=== PATIENT | female | born 1965 | race American Indian/Alaskan Native ===

== ENCOUNTER 2016-05-17 09:52 | Emergency (ER) | payer MEDICAID ==
[2016-05-17 10:32] VITALS: BP 158/107
== END 2016-05-17 10:16 | disposition left against medical advice (07) ==
LOC: ED 09:52
DX: Z76.0 Encounter for issue of repeat prescription (principal); Z53.21 Procedure and treatment not carried out due to patient leaving prior to being seen by health care provider

== ENCOUNTER 2016-05-18 07:25 | Emergency (ER) | payer MEDICAID ==
[2016-05-18 08:05] VITALS: BP 143/95
== END 2016-05-18 12:05 | disposition left against medical advice (07) ==
LOC: ED 07:25
DX: F20.9 Schizophrenia, unspecified (principal); I10 Essential (primary) hypertension; F17.200 Nicotine dependence, unspecified, uncomplicated; F12.10 Cannabis abuse, uncomplicated; Z53.21 Procedure and treatment not carried out due to patient leaving prior to being seen by health care provider

== ENCOUNTER 2016-08-18 16:41 | Emergency (ER) | payer MEDICAID ==
[2016-08-18 16:58] VITALS: BP 155/109
[2016-08-18] MEDS ORDERED: BABY ASPIRIN PO ONE (17:26)
--- NOTE | 2016-08-18 17:30 | Emergency Department Report ---
ED Chest Pain HPI - General Chief Complaint: Chest Pain Stated Complaint: PYSCH MEDS REFILL Time Seen by Provider: 08/18/16 17:26 Source: patient Mode of arrival: Ambulatory Limitations: No Limitations - History of Present Illness Initial Comments: Pt is a 51 yr old female with h/o HTN, HIV, mood disorder who presents with multiple issues. Pt first reported she came to the ED for med refills of her HTN meds and seroquel, but then reports she had an episode of sharp chest pain prior to arrival. Pt now reports no chest pain. Pt also reports she no longer has a PMD to get her Rx from, but will follow up with someone if we can recommend a physician. Otherwise no other complaints, no fevers, chills, ANDREW, NVD , SOB, abd pain, extremity pain/ swelling, URI sx, h/o malignancy, h/o DVt or PE , travel, trauma, syncope, or sick contacts - Related Data Home Medications Medication Instructions Recorded Confirmed Last Taken Emtricitabin/Tenofovir [TRUVADA 1 tab PO DAILY 05/09/13 09/22/15 Unknown 200-300 mg] Previous Rx's Medication Instructions Recorded Last Taken Type Atazanavir Sulfate [Reyataz] 300 mg PO QDAY #30 capsule 08/18/16 Unknown Rx Emtricitabine/Tenofovir [Truvada 1 each PO DAILY #30 tablet 08/18/16 Unknown Rx 167 mg-250 mg Tablet] Lisinopril [Zestril TAB] 10 mg PO QDAY #30 tablet 08/18/16 Unknown Rx QUEtiapine [SEROquel] 200 mg PO BID #60 tablet 08/18/16 Unknown Rx Raltegravir Potassium [Isentress] 400 mg PO BID #30 tablet 08/18/16 Unknown Rx amLODIPine [Norvasc] 5 mg PO QDAY #30 tablet 08/18/16 Unknown Rx Allergies Allergy/AdvReac Type Severity Reaction Status Date / Time No Known Allergies Allergy Verified 09/22/15 03:48 Heart Score - HEART Score History: Slightly suspicious EKG: Normal Age: 45-65 Risk factors: No known risk factors Troponin: < normal limit HEART Score: 1 ED Review of Systems ROS: Stated complaint: PYSCH MEDS REFILL Other details as noted in HPI ED Past Medical Hx - Past Medical History Previous Medical History?: Yes Hx Hypertension: Yes Hx Congestive Heart Failure: No Hx Diabetes: Yes (under control-not prescribed any meds) Hx Psychiatric Treatment: Yes (Schizophrenia) Hx Asthma: No Hx COPD: No Hx HIV: Yes - Surgical History Past Surgical History?: Yes Additional Surgical History: Surgery on right arm and a Cyst removed from buttock - Social History Smoking Status: Current Every Day Smoker Substance Use Type: Marijuana, Prescribed - Medications Home Medications: Home Medications Medication Instructions Recorded Confirmed Last Taken Type Emtricitabin/Tenofovir [TRUVADA 1 tab PO DAILY 05/09/13 09/22/15 Unknown History 200-300 mg] Atazanavir Sulfate [Reyataz] 300 mg PO QDAY #30 capsule 08/18/16 Unknown Rx Emtricitabine/Tenofovir [Truvada 1 each PO DAILY #30 tablet 08/18/16 Unknown Rx 167 mg-250 mg Tablet] Lisinopril [Zestril TAB] 10 mg PO QDAY #30 tablet 08/18/16 Unknown Rx QUEtiapine [SEROquel] 200 mg PO BID #60 tablet 08/18/16 Unknown Rx Raltegravir Potassium [Isentress] 400 mg PO BID #30 tablet 08/18/16 Unknown Rx amLODIPine [Norvasc] 5 mg PO QDAY #30 tablet 08/18/16 Unknown Rx ED Physical Exam - General Limitations: No Limitations General appearance: alert, in no apparent distress - Head Head exam: Present: atraumatic, normocephalic - Eye Eye exam: Present: normal appearance - ENT ENT exam: Present: mucous membranes moist - Neck Neck exam: Present: normal inspection - Respiratory Respiratory exam: Present: normal lung sounds bilaterally. Absent: respiratory distress - Cardiovascular Cardiovascular Exam: Present: regular rate, normal rhythm. Absent: systolic murmur, diastolic murmur, rubs, gallop - GI/Abdominal GI/Abdominal exam: Present: soft, normal bowel sounds - Extremities Exam Extremities exam: Present: normal inspection - Back Exam Back exam: Present: normal inspection - Neurological Exam Neurological exam: Present: alert, oriented X3 - Psychiatric Psychiatric exam: Present: normal affect, normal mood - Skin Skin exam: Present: warm, dry, intact, normal color. Absent: rash ED Course Vital Signs 08/18/16 16:54 Temperature 98.7 F Pulse Rate 80 Respiratory 20 Rate Blood Pressure 155/109 O2 Sat by Pulse 99 Oximetry SHAYNE score - Shayne Score Age > 65: (0) No Aspirin use within the Past 7 Days: (0) No 3 or more CAD Risk Factors: (0) No 2 or more Angina events in past 24 hrs: (0) No Known CAD with more than 50% Stenosis: (0) No Elevated Cardiac Markers: (0) No ST Deviation Greater than 0.5mm: (0) No SHAYNE Score: 0 ED Medical Decision Making - Lab Data Result diagrams: 08/18/16 17:45 08/18/16 17:45 - EKG Data -: EKG Interpreted by Me - EKG Data 08/18/16 18:55 EKG 1837 NSR at 57 bpm, QTc:424ms, normal axis, no LVH, no ST changes, no STEMI - Radiology Data Radiology results: report reviewed CXR: No acute cardiopulmonary findings - Medical Decision Making Called out to [facility], spoke with the pharmacist to verify the patients medication list. Pt last had meds filled 3 months ago Truvada 200/300 daily Isentress 400mg BID Lisinopril 10mg daily Seroquel 200mg BID Ambien 10mg daily PRN Critical care attestation.: If time is entered above; I have spent that time in minutes in the direct care of this critically ill patient, excluding procedure time. ED Disposition Clinical Impression: Chest wall pain, Medication refill, HIV disease, HTN (hypertension), Insomnia Disposition: TO HOME OR SELFCARE Is pt being admited?: No Condition: Stable Instructions: Chest Pain (ED), Chronic Hypertension (ED), Human Immunodeficiency Virus Infection (ED), Hypertension (ED), Insomnia (ED) Prescriptions: amLODIPine [Norvasc] 5 mg PO QDAY #30 tablet Atazanavir Sulfate [Reyataz] 300 mg PO QDAY #30 capsule Emtricitabine/Tenofovir [Truvada 167 mg-250 mg Tablet] 1 each PO DAILY #30 tablet Lisinopril [Zestril TAB] 10 mg PO QDAY #30 tablet QUEtiapine [SEROquel] 200 mg PO BID #60 tablet Raltegravir Potassium [Isentress] 400 mg PO BID #30 tablet Referrals: PRIMARY CARE, [Primary Care Provider] - 3-5 Days
[2016-08-18 18:15] LABS: Basophils % (Auto) 0.4 % (0.0-1.8); Eosinophils % (Auto) 1.7 % (0.0-4.3); Hematocrit 45.6 % (30.3-42.9); Hemoglobin 15.1 gm/dl (10.1-14.3); Mean Corpuscular HGB Conc 33 % (30-34); Mean Corpuscular Hemoglobin 32 pg (28-32); Mean Corpuscular Volume 97 fl (79-97); Platelet Count 236 K/mm3 (140-440); Red Blood Count 4.72 M/mm3 (3.65-5.03); Red Cell Distribution Width 13.6 % (13.2-15.2); White Blood Count 9.7 K/mm3 (4.5-11.0)
[2016-08-18 19:07] LABS: Anion Gap TNR mmol/L; Blood Urea Nitrogen TNR mg/dL (7-17); Carbon Dioxide TNR mmol/L (22-30); Chloride TNR mmol/L (98-107); Potassium TNR mmol/L (3.6-5.0); Sodium TNR mmol/L (137-145)
[2016-08-18 19:08] LABS: BUN/Creatinine Ratio TNR; Calcium TNR mg/dL (8.4-10.2); Glucose TNR mg/dL (65-100)
--- NOTE | 2016-08-19 07:41 | XRay Report ---
Chest 2 views: Compared to 08/12/15. History: Chest pain. Findings: Normal cardiomediastinal silhouette. Trachea is midline. No consolidation, pneumothorax or pleural effusion. Impression: No acute cardiopulmonary findings.
== END 2016-08-18 19:16 | disposition home or self-care (01) ==
LOC: ED 16:41
DX: R07.89 Other chest pain (principal); G47.00 Insomnia, unspecified; I10 Essential (primary) hypertension; E11.9 Type 2 diabetes mellitus without complications; F20.9 Schizophrenia, unspecified; F17.210 Nicotine dependence, cigarettes, uncomplicated; F12.10 Cannabis abuse, uncomplicated
CPT/HCPCS: 36415; 71020; 80048; 85025; 93005; 93010; 99284

== ENCOUNTER 2016-09-21 13:07 | Emergency (ER) | payer MEDICAID ==
[2016-09-21 14:41] VITALS: BP 120/84
--- NOTE | 2016-09-21 15:22 | Emergency Department Report ---
Entered by MERI DORSEY, acting as scribe for VIRGILIO BURROWS NP. ED General Adult HPI - General Chief complaint: Medical Clearance Stated complaint: REFILL Time Seen by Provider: 09/21/16 14:37 Source: patient, old records reviewed Mode of arrival: Ambulatory Limitations: No Limitations - History of Present Illness Initial comments: 51 y/o female presents asymptomatic requesting medication refill. Medication includes Seroquel, Amlodipine and Pt denies chest pain, syncope or ANDREW. She was seen here a month ago and reports using prescribed medicine with relief. -: days(s) (today) Radiation: non-radiation Severity scale (0 -10): 0 Quality: constant Consistency: constant Improves with: none Worsens with: none Associated Symptoms: denies other symptoms Treatments Prior to Arrival: none - Related Data Previous Rx's Medication Instructions Recorded Last Taken Type Atazanavir Sulfate [Reyataz] 300 mg PO QDAY #30 capsule 09/21/16 Unknown Rx Emtricitabine/Tenofovir [Truvada 1 each PO DAILY #30 tablet 09/21/16 Unknown Rx 167 mg-250 mg Tablet] Lisinopril [Zestril TAB] 10 mg PO QDAY #30 tablet 09/21/16 Unknown Rx QUEtiapine [SEROquel] 200 mg PO BID #60 tablet 09/21/16 Unknown Rx Raltegravir Potassium [Isentress] 400 mg PO BID #30 tablet 09/21/16 Unknown Rx amLODIPine [Norvasc] 5 mg PO QDAY #30 tablet 09/21/16 Unknown Rx Allergies Allergy/AdvReac Type Severity Reaction Status Date / Time No Known Allergies Allergy Verified 09/22/15 03:48 ED Review of Systems Comment: All other systems reviewed and negative Constitutional: denies: chills, fever ENT: denies: throat pain Cardiovascular: denies: chest pain Neurological: denies: headache, numbness, abnormal gait, vertigo ED Past Medical Hx - Past Medical History Hx Hypertension: Yes Hx Congestive Heart Failure: No Hx Diabetes: Yes (under control-not prescribed any meds) Hx Psychiatric Treatment: Yes (Schizophrenia) Hx Asthma: No Hx COPD: No Hx HIV: Yes - Surgical History Additional Surgical History: Surgery on right arm and a Cyst removed from buttock - Social History Smoking Status: Current Every Day Smoker Substance Use Type: Marijuana, Prescribed - Medications Home Medications: Home Medications Medication Instructions Recorded Confirmed Last Taken Type Atazanavir Sulfate [Reyataz] 300 mg PO QDAY #30 capsule 09/21/16 Unknown Rx Emtricitabine/Tenofovir [Truvada 1 each PO DAILY #30 tablet 09/21/16 Unknown Rx 167 mg-250 mg Tablet] Lisinopril [Zestril TAB] 10 mg PO QDAY #30 tablet 09/21/16 Unknown Rx QUEtiapine [SEROquel] 200 mg PO BID #60 tablet 09/21/16 Unknown Rx Raltegravir Potassium [Isentress] 400 mg PO BID #30 tablet 09/21/16 Unknown Rx amLODIPine [Norvasc] 5 mg PO QDAY #30 tablet 09/21/16 Unknown Rx ED Physical Exam - General Limitations: No Limitations General appearance: alert, in no apparent distress - Head Head exam: Present: atraumatic, normocephalic - Eye Eye exam: Present: normal appearance, PERRL, EOMI Pupils: Present: normal accommodation - ENT ENT exam: Present: mucous membranes moist - Neck Neck exam: Present: normal inspection, full ROM. Absent: tenderness, meningismus, lymphadenopathy, thyromegaly - Respiratory Respiratory exam: Present: normal lung sounds bilaterally. Absent: respiratory distress, wheezes, rales, rhonchi, stridor - Cardiovascular Cardiovascular Exam: Present: regular rate, normal rhythm, normal heart sounds. Absent: bradycardia, tachycardia, irregular rhythm, systolic murmur, diastolic murmur, rubs, gallop - GI/Abdominal GI/Abdominal exam: Present: soft, normal bowel sounds - Extremities Exam Extremities exam: Present: normal inspection, full ROM, normal capillary refill. Absent: tenderness, pedal edema, joint swelling - Back Exam Back exam: Present: normal inspection, full ROM. Absent: tenderness, CVA tenderness (R), CVA tenderness (L), paraspinal tenderness, vertebral tenderness - Neurological Exam Neurological exam: Present: alert, oriented X3, CN II-XII intact, normal gait - Psychiatric Psychiatric exam: Present: normal affect, normal mood - Skin Skin exam: Present: warm, dry, intact, normal color. 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 PT verbalizes understanding. - Pulse Oximetry Interpretation Digit-Finger Initial Pulse Oximetry Readin Actions Taken: none ED Medical Decision Making - Differential Diagnosis htn, medication refill Critical Care Time: No ED Disposition Clinical Impression: Noncompliance with medication regimen, HIV disease Schizophrenia Qualifiers: Schizophrenia type: unspecified Qualified Code(s): F20.9 - Schizophrenia, unspecified Hypertension Qualifiers: Hypertension type: essential hypertension Qualified Code(s): I10 - Essential ( primary) hypertension Disposition: - TO HOME OR SELFCARE Is pt being admited?: No Does the pt Need Aspirin: No Condition: Stable Instructions: Schizophrenia (ED), Human Immunodeficiency Virus Infection (ED), Hypertension (ED) Additional Instructions: You most follow up with a PCP in the 3-5 days to establish primary care Return to the ED if worsening or concerns Prescriptions: amLODIPine [Norvasc] 5 mg PO QDAY #30 tablet Atazanavir Sulfate [Reyataz] 300 mg PO QDAY #30 capsule Emtricitabine/Tenofovir [Truvada 167 mg-250 mg Tablet] 1 each PO DAILY #30 tablet Lisinopril [Zestril TAB] 10 mg PO QDAY #30 tablet QUEtiapine [SEROquel] 200 mg PO BID #60 tablet Raltegravir Potassium [Isentress] 400 mg PO BID #30 tablet Referrals: PRIMARY CARE, [Primary Care Provider] - 3-5 Days DEMETRIS BECKWITH MD [Staff Physician] - 3-5 Days [facility] [Outside] - 3-5 Days [facility] [Outside] - 3-5 Days Time of Disposition: 15:20 This documentation as recorded by the WILLIAN blackburn RYAN,accurately reflects the service I personally performed and the decisions made by me,VIRGILIO BURROWS , NUCLEAR PHYSICIAN.
== END 2016-09-21 15:47 | disposition home or self-care (01) ==
LOC: ED 13:07
DX: Z91.14 Patient's other noncompliance with medication regimen (principal); F20.9 Schizophrenia, unspecified; I10 Essential (primary) hypertension; F17.200 Nicotine dependence, unspecified, uncomplicated; F12.10 Cannabis abuse, uncomplicated
CPT/HCPCS: 99282

== ENCOUNTER 2016-10-17 15:38 | Emergency (ER) | payer MEDICAID ==
[2016-10-17 16:06] VITALS: BP 149/92
[2016-10-17 16:51] LABS: Basophils % (Auto) 0.4 % (0.0-1.8); Eosinophils % (Auto) 3.2 % (0.0-4.3); Hematocrit 41.8 % (30.3-42.9); Hemoglobin 13.8 gm/dl (10.1-14.3); INR 0.93 (0.87-1.13); Mean Corpuscular HGB Conc 33 % (30-34); Mean Corpuscular Hemoglobin 32 pg (28-32); Mean Corpuscular Volume 98 fl (79-97); Platelet Count 306 K/mm3 (140-440); Red Blood Count 4.29 M/mm3 (3.65-5.03)
[2016-10-17 16:52] LABS: Partial Thromboplastin Time 26.3 Sec. (24.2-36.6)
[2016-10-17 17:11] LABS: Anion Gap 15 mmol/L; Blood Urea Nitrogen 14 mg/dL (7-17); Carbon Dioxide 25 mmol/L (22-30); Chloride 105.7 mmol/L (98-107); Glucose 90 mg/dL (65-100); Sodium 142 mmol/L (137-145)
--- NOTE | 2016-10-17 17:11 | Cat Scan Report ---
FINAL REPORT PROCEDURE: CT HEAD/BRAIN WO CON TECHNIQUE: Computerized tomography of the head was performed without contrast material. HISTORY: FACIAL DROOP X 3 DAYS COMPARISON: No prior studies are available for comparison. FINDINGS: Brain: Brain density appears normal. No evidence of intracranial hemorrhage. No parenchymal hemorrhage, mass lesions or mass effect are seen. No abnormal extraxial fluid collects or masses are seen. Ventricles: There is mild asymmetry in the size of the lateral ventricles, the left side is smaller than the right which appears represent a normal variant. Bone Windows: No evidence of skull fracture. Paranasal sinuses: There is mild mucosal thickening scattered in a few of the ethmoid air cells anteriorly in the sphenoid sinuses and medially in the right maxillary sinus. Paranasal sinuses otherwise appear clear. The entire maxillary sinuses are not included on this exam. Mastoid air cells: Clear IMPRESSION: Negative unenhanced CT scan of the brain. If clinically indicated MRI of the brain could be obtained for further evaluation. Mild paranasal sinus disease as described. No other abnormalities are seen.
== END 2016-10-17 18:06 | disposition left against medical advice (07) ==
LOC: ED 15:38
DX: R26.2 Difficulty in walking, not elsewhere classified (principal); I10 Essential (primary) hypertension; R29.810 Facial weakness; F20.9 Schizophrenia, unspecified; F17.200 Nicotine dependence, unspecified, uncomplicated; Z53.21 Procedure and treatment not carried out due to patient leaving prior to being seen by health care provider
CPT/HCPCS: 36415; 70450; 80048; 84484; 85025; 85610; 85670; 85730; 93005; 93010

== ENCOUNTER 2017-03-31 11:30 | Emergency (ER) | payer MEDICAID ==
[2017-03-31 11:56] VITALS: BP 125/84
--- NOTE | 2017-03-31 14:54 | Emergency Department Report ---
HPI - General Chief Complaint: Medical Clearance Time Seen by Provider: 03/31/17 14:34 - HPI HPI: The patient is a 51-year-old female with a history of HIV and mental health disease, who presents for evaluation of dizziness and decreased appetite. The patient reports 1 day of mild intermittent dizziness exacerbated with position changes in improved with supine positioning and rest. She states that she has experienced decreased appetite over the same time. The patient denies fever, headache, neck pain, paresthesias, focal motor weakness, blurry vision, ear pain , tinnitus, chest pain, hemoptysis, dyspnea, abdominal pain, confusion or altered mental status, or recent URI or diarrhea. ED Past Medical Hx - Past Medical History Previous Medical History?: Yes Hx Hypertension: Yes Hx Congestive Heart Failure: No Hx Diabetes: Yes (diet controlled) Hx Psychiatric Treatment: Yes (Schizophrenia) Hx Asthma: No Hx COPD: No Hx HIV: Yes - Surgical History Past Surgical History?: Yes Additional Surgical History: Surgery on right arm and a Cyst removed from buttock - Social History Smoking Status: Current Every Day Smoker Substance Use Type: Marijuana - Medications Home Medications: Home Medications Medication Instructions Recorded Confirmed Last Taken Type Lisinopril [Zestril TAB] 10 mg PO QDAY #30 tablet 09/21/16 Unknown Rx Atazanavir Sulfate [Reyataz] 300 mg PO QDAY #30 capsule 03/31/17 Unknown Rx Emtricitabine/Tenofovir (Tdf) 1 each PO DAILY #30 tablet 03/31/17 Unknown Rx [Truvada 167 mg-250 mg Tablet] QUEtiapine [SEROquel] 200 mg PO BID #30 tablet 03/31/17 Unknown Rx Raltegravir Potassium [Isentress] 400 mg PO BID #60 tablet 03/31/17 Unknown Rx amLODIPine [Norvasc] 5 mg PO QDAY #30 tablet 03/31/17 Unknown Rx ED Review of Systems ROS: Stated complaint: REFILLS ON PSYCH MEDS Other details as noted in HPI Constitutional: reports dizziness denies: fever ENT: denies: throat or neck pain Respiratory: denies: cough, shortness of breath Cardiovascular: denies: chest pain Endocrine: denies unexplained weight loss or gain Gastrointestinal: denies: abdominal pain, nausea Genitourinary: denies: dysuria Musculoskeletal: denies: leg swelling Skin: denies: rash Neurological: denies: headache Hematological/Lymphatic: denies: easy bleeding or easy bruising Psych: denies sadness or hopelessness Physical Exam - Physical Exam Vital Signs: Vital Signs 03/31/17 11:51 Temperature 97.6 F Pulse Rate 69 Respiratory 18 Rate Blood Pressure 125/84 O2 Sat by Pulse 96 Oximetry Physical Exam: General: well-nourished, well-developed, no acute distress Head: Normocephalic, atraumatic Eyes: normal sclera ENT: Mucous membranes are pale and dry Neck: No neck stiffness, no cervical adenopathy Respiratory: Breath sounds equal bilaterally, no wheezing, rales, or rhonchi Cardio: S1 and S2 present, no murmurs, rubs, gallops, capillary refill is delayed Abdomen: Normoactive bowel sounds, soft abdomen, no rigidity, no guarding or rebound tenderness Chest WALL/Back: No tenderness to palpation of the chest wall, no CVA tenderness with percussion Musc: No pitting edema Skin: No rash Neuro: alert oriented x4, normal cognition, speech normal, PERRL, EOM intact, no facial drooping, no uvula or tongue deviation on protrusion, no deficit with rotation of neck or shoulder shrug, no obvious gross motor deficit in the upper or lower extremities with flexion or extension at the shoulder, elbow, wrist, hip, knee, or ankle bilaterally, no obvious gross sensation deficit to crude touch or 2 pt discrimination, 2+ symmetric reflexes on DTR testing, no dysmetria , dysdiadochokinesia, no coordination deficit with [id number] or heel-to- pino testing,, Babinski downgoing, romberg negative, patient able to to ambulate without abnormal gait Psych: Normal affect ED Course Vital Signs 03/31/17 11:51 Temperature 97.6 F Pulse Rate 69 Respiratory 18 Rate Blood Pressure 125/84 O2 Sat by Pulse 96 Oximetry ED Medical Decision Making - Medical Decision Making The patient was seen and examined by myself. The patient is placed on a front desk monitor and continuous pulse ox. On initial evaluation, the patient was found to be in no distress. Evaluation findings are consistent with orthostatic dizziness. The patient declines IV fluids. She requests to receive refills of her medications and be discharged. The patient is stable for discharge with outpatient follow-up. The patient is given follow-up and return instructions. The patient expressed understanding and agreed with the plan. The patient is discharged in stable condition. Critical care attestation.: If time is entered above; I have spent that time in minutes in the direct care of this critically ill patient, excluding procedure time. ED Disposition Clinical Impression: Medication refill, Anxiety, Decreased appetite, Dizziness Disposition: - TO HOME OR SELFCARE Is pt being admited?: No Does the pt Need Aspirin: No Condition: Stable Instructions: Quetiapine (By mouth) Prescriptions: amLODIPine [Norvasc] 5 mg PO QDAY #30 tablet Atazanavir Sulfate [Reyataz] 300 mg PO QDAY #30 capsule Emtricitabine/Tenofovir (Tdf) [Truvada 167 mg-250 mg Tablet] 1 each PO DAILY # 30 tablet QUEtiapine [SEROquel] 200 mg PO BID #30 tablet Raltegravir Potassium [Isentress] 400 mg PO BID #60 tablet Referrals: PRIMARY CARE, [Primary Care Provider] - 3-[address] [facility] [Provider Group] - 3-5 Days Time of Disposition: 14:49
== END 2017-03-31 14:56 | disposition home or self-care (01) ==
LOC: ED 11:30
DX: F41.9 Anxiety disorder, unspecified (principal); R42 Dizziness and giddiness; F50.89 Other specified eating disorder; I10 Essential (primary) hypertension; E11.9 Type 2 diabetes mellitus without complications; F20.9 Schizophrenia, unspecified; Z21 Asymptomatic human immunodeficiency virus [HIV] infection status; F17.200 Nicotine dependence, unspecified, uncomplicated; F12.10 Cannabis abuse, uncomplicated
CPT/HCPCS: 99283

== ENCOUNTER 2017-06-02 18:34 | Emergency (ER) | payer MEDICAID ==
[2017-06-02 18:52] VITALS: BP 137/104
== END 2017-06-02 22:00 | disposition left against medical advice (07) ==
LOC: ED 18:34
DX: Z76.0 Encounter for issue of repeat prescription (principal); Z53.21 Procedure and treatment not carried out due to patient leaving prior to being seen by health care provider

== ENCOUNTER 2017-08-26 09:42 | Emergency (ER) | payer MEDICAID ==
[2017-08-26 09:54] VITALS: BP 115/81
--- NOTE | 2017-08-26 10:27 | XRay Report ---
RIGHT FOOT, 3 views: History: Foot injury. The bony architecture is intact. Bony alignment is normal. No soft tissue abnormalities are seen. The joint spaces appear preserved. Small plantar spur is noted. IMPRESSION: No acute injury is identified.
[2017-08-26] MEDS ORDERED: ZOFRAN ODT PO ONE (12:59)
[2017-08-26] MEDS ORDERED: NORCO 5/325 PO ONE (12:59)
[2017-08-26] MEDS ORDERED: MOTRIN PO ONE (12:59)
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
== END 2017-08-26 13:20 | disposition home or self-care (01) ==
LOC: ED 09:42
DX: S93.601A Unspecified sprain of right foot, initial encounter (principal); I10 Essential (primary) hypertension; E11.9 Type 2 diabetes mellitus without complications; F20.9 Schizophrenia, unspecified; F17.200 Nicotine dependence, unspecified, uncomplicated; F12.10 Cannabis abuse, uncomplicated; W17.89XA Other fall from one level to another, initial encounter; Y93.12 Activity, springboard and platform diving; Y92.34 Swimming pool (public) as the place of occurrence of the external cause; Y99.8 Other external cause status
CPT/HCPCS: Q0162

== ENCOUNTER 2018-03-31 10:35 | Emergency (ER) | payer MEDICAID ==
--- NOTE | 2018-03-31 10:41 | Emergency Department Report ---
ED General Adult HPI - General Chief complaint: Medical Clearance Stated complaint: MED REFILL Time Seen by Provider: 03/31/18 10:40 Source: patient Mode of arrival: Ambulatory Limitations: No Limitations - History of Present Illness Initial comments: She is a 52-year-old -[place] female who is known to [facility]. She is out of her Seroquel. She states that she does have a psychiatrist down the street but she was unable to get an appointment so they told her to come here. She has no HI and no SI. She is here for only her Seroquel which she takes 200 mg twice a day. -: Gradual Associated Symptoms: denies other symptoms - Related Data Previous Rx's Medication Instructions Recorded Last Taken Type Lisinopril [Zestril TAB] 10 mg PO QDAY #30 tablet 09/21/16 Unknown Rx Atazanavir Sulfate [Reyataz] 300 mg PO QDAY #30 capsule 03/31/17 Unknown Rx Emtricitabine/Tenofovir (Tdf) 1 each PO DAILY #30 tablet 03/31/17 Unknown Rx [Truvada 167 mg-250 mg Tablet] Raltegravir Potassium [Isentress] 400 mg PO BID #60 tablet 03/31/17 Unknown Rx amLODIPine [Norvasc] 5 mg PO QDAY #30 tablet 03/31/17 Unknown Rx QUEtiapine [SEROquel] 200 mg PO BID #30 tablet 03/31/18 Unknown Rx QUEtiapine [SEROquel] 200 mg PO BID #30 tablet 03/31/18 Unknown Rx Allergies Allergy/AdvReac Type Severity Reaction Status Date / Time No Known Allergies Allergy Verified 03/31/18 10:35 ED Review of Systems ROS: Stated complaint: MED REFILL Other details as noted in HPI NO COMPLAINTS Comment: MED REFILL ED Past Medical Hx - Past Medical History Hx Hypertension: Yes Hx Congestive Heart Failure: No Hx Diabetes: Yes (diet controlled) Hx Psychiatric Treatment: Yes (Schizophrenia) Hx Asthma: No Hx COPD: No Hx HIV: Yes (on anti-virals) - Surgical History Additional Surgical History: Surgery on right arm and a Cyst removed from buttock - Family History Family history: no significant - Social History Smoking Status: Current Every Day Smoker Substance Use Type: None - Medications Home Medications: Home Medications Medication Instructions Recorded Confirmed Last Taken Type Lisinopril [Zestril TAB] 10 mg PO QDAY #30 tablet 09/21/16 Unknown Rx Atazanavir Sulfate [Reyataz] 300 mg PO QDAY #30 capsule 03/31/17 Unknown Rx Emtricitabine/Tenofovir (Tdf) 1 each PO DAILY #30 tablet 03/31/17 Unknown Rx [Truvada 167 mg-250 mg Tablet] Raltegravir Potassium [Isentress] 400 mg PO BID #60 tablet 03/31/17 Unknown Rx amLODIPine [Norvasc] 5 mg PO QDAY #30 tablet 03/31/17 Unknown Rx QUEtiapine [SEROquel] 200 mg PO BID #30 tablet 03/31/18 Unknown Rx QUEtiapine [SEROquel] 200 mg PO BID #30 tablet 03/31/18 Unknown Rx ED Physical Exam - General Limitations: No Limitations General appearance: alert - Head Head exam: Present: atraumatic - Eye Eye exam: Present: normal appearance Pupils: Present: normal accommodation - ENT ENT exam: Present: mucous membranes moist - Neck Neck exam: Present: normal inspection - Respiratory Respiratory exam: Present: normal lung sounds bilaterally - Cardiovascular Cardiovascular Exam: Present: regular rate - GI/Abdominal GI/Abdominal exam: Present: soft - Neurological Exam Neurological exam: Present: alert, oriented X3, CN II-XII intact, normal gait - Psychiatric Psychiatric exam: Present: normal affect, normal mood, anxious. Absent: depressed, agitated, flat affect, manic, homicidal ideation, suicidal ideation ED Medical Decision Making - Medical Decision Making No HI no SI HERE FOR MED REFILL ONLY HAS PSYCH FOLLOW UP - Differential Diagnosis simple med refill Critical care attestation.: If time is entered above; I have spent that time in minutes in the direct care of this critically ill patient, excluding procedure time. ED Disposition Clinical Impression: Medication refill Disposition: DC-01 TO HOME OR SELFCARE Is pt being admited?: No Does the pt Need Aspirin: No Condition: Stable Additional Instructions: FOLLOW UP WITH MD ER CAN NOT GIVE MED REFILLS Prescriptions: QUEtiapine [SEROquel] 200 mg PO BID #30 tablet QUEtiapine [SEROquel] 200 mg PO BID #30 tablet Referrals: ARTURO UNGER DO [Primary Care Provider] - 3-5 Days Time of Disposition: 10:45
== END 2018-03-31 11:00 | disposition home or self-care (01) ==
LOC: ED 10:35
CPT/HCPCS: 99281

== ENCOUNTER 2018-06-06 12:01 | Emergency (ER) | payer MEDICAID, OTHER ==
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
[2018-06-07 18:56] VITALS: BP 128/91
== END 2018-06-06 14:23 | disposition home or self-care (01) ==
LOC: ED 12:01
DX: M54.2 Cervicalgia (principal); R51 Headache; I10 Essential (primary) hypertension; E11.9 Type 2 diabetes mellitus without complications; Z21 Asymptomatic human immunodeficiency virus [HIV] infection status; Z98.890 Other specified postprocedural states
CPT/HCPCS: 70450; 72125; 99283

== ENCOUNTER 2018-08-23 09:34 | Emergency (ER) | payer MEDICAID ==
[2018-08-23 09:43] VITALS: BP 127/84
--- NOTE | 2018-08-23 09:54 | Emergency Department Report ---
ED Recheck HPI - General Chief Complaint: Medical Clearance Stated Complaint: MEDICATION REFILL Time Seen by Provider: 08/23/18 09:46 Source: patient Mode of arrival: Ambulatory Limitations: No Limitations - History of Present Illness Initial Comments: Patient is a 53-year-old female who presents to the emergency room with complaints of a medication refill. She states that she takes Seroquel 200 mg twice a day. She states that she ran out of her medication 2 days ago. She states she tried to see her psychiatrist last week and this week but it appears that the office has closed down. She states she has a little increased stress but otherwise no symptoms. She does not report any SI, HI, or hallucinations. She has a past medical history of schizophrenia, HIV, hypertension. She denies any allergies to medications. - Related Data Previous Rx's Medication Instructions Recorded Last Taken Type Lisinopril [Zestril TAB] 10 mg PO QDAY #30 tablet 09/21/16 Unknown Rx Atazanavir Sulfate [Reyataz] 300 mg PO QDAY #30 capsule 03/31/17 Unknown Rx Emtricitabine/Tenofovir (Tdf) 1 each PO DAILY #30 tablet 03/31/17 Unknown Rx [Truvada 167 mg-250 mg Tablet] Raltegravir Potassium [Isentress] 400 mg PO BID #60 tablet 03/31/17 Unknown Rx amLODIPine [Norvasc] 5 mg PO QDAY #30 tablet 03/31/17 Unknown Rx QUEtiapine [SEROquel] 200 mg PO BID #30 tablet 03/31/18 Unknown Rx Ibuprofen [Motrin] 800 mg PO Q8HR PRN #14 tablet 06/06/18 Unknown Rx QUEtiapine [SEROquel] 200 mg PO BID #30 tablet 08/23/18 Unknown Rx Allergies Allergy/AdvReac Type Severity Reaction Status Date / Time No Known Allergies Allergy Verified 03/31/18 10:35 ED Review of Systems ROS: Stated complaint: MEDICATION REFILL Other details as noted in HPI Comment: All other systems reviewed and negative ED Past Medical Hx - Past Medical History Previous Medical History?: Yes Hx Hypertension: Yes Hx Congestive Heart Failure: No Hx Diabetes: Yes (diet controlled) Hx Psychiatric Treatment: Yes (Schizophrenia) Hx Asthma: No Hx COPD: No Hx HIV: Yes (on anti-virals) - Surgical History Past Surgical History?: Yes Additional Surgical History: Surgery on right arm and a Cyst removed from buttock - Social History Smoking Status: Current Every Day Smoker Substance Use Type: None - Medications Home Medications: Home Medications Medication Instructions Recorded Confirmed Last Taken Type Lisinopril [Zestril TAB] 10 mg PO QDAY #30 tablet 09/21/16 Unknown Rx Atazanavir Sulfate [Reyataz] 300 mg PO QDAY #30 capsule 03/31/17 Unknown Rx Emtricitabine/Tenofovir (Tdf) 1 each PO DAILY #30 tablet 03/31/17 Unknown Rx [Truvada 167 mg-250 mg Tablet] Raltegravir Potassium [Isentress] 400 mg PO BID #60 tablet 03/31/17 Unknown Rx amLODIPine [Norvasc] 5 mg PO QDAY #30 tablet 03/31/17 Unknown Rx QUEtiapine [SEROquel] 200 mg PO BID #30 tablet 03/31/18 Unknown Rx Ibuprofen [Motrin] 800 mg PO Q8HR PRN #14 tablet 06/06/18 Unknown Rx QUEtiapine [SEROquel] 200 mg PO BID #30 tablet 08/23/18 Unknown Rx ED Physical Exam - General Limitations: No Limitations General appearance: alert, in no apparent distress - Head Head exam: Present: atraumatic, normocephalic - Eye Eye exam: Present: normal appearance, PERRL, EOMI - ENT ENT exam: Present: mucous membranes moist - Respiratory Respiratory exam: Present: normal lung sounds bilaterally. Absent: respiratory distress, wheezes, rales, rhonchi, stridor, accessory muscle use, decreased breath sounds, prolonged expiratory - Cardiovascular Cardiovascular Exam: Present: regular rate, normal rhythm, normal heart sounds. Absent: systolic murmur, diastolic murmur, rubs, gallop - Neurological Exam Neurological exam: Present: alert, oriented X3 - Psychiatric Psychiatric exam: Present: normal affect, normal mood - Skin Skin exam: Present: warm, dry, intact ED Course Vital Signs 08/23/18 09:40 Temperature 97.7 F Pulse Rate 78 Respiratory 16 Rate Blood Pressure 127/84 O2 Sat by Pulse 99 Oximetry ED Recheck MDM - Medical Decision Making Patient is a 53-year-old female who presents to the emergency room with complaints of a medication refill. She states that she takes Seroquel 200 mg twice a day. She states that she ran out of her medication 2 days ago. She states she tried to see her psychiatrist last week and this week but it appears that the office has closed down. She states she has a little increased stress but otherwise no symptoms. She does not report any SI, HI, or hallucinations. She has a past medical history of schizophrenia, HIV, hypertension. She denies any allergies to medications. VSS. normal examination. spoke with Dr. Sharif who states to refill two weeks worth of her medication. advised pt to please take medication as prescribed. Please follow-up with the [facility] in the next 2-3 days. Future refills of your medications will need to be through a psychiatrist or a primary care doctor. Return to the emergency room for any new or worsening symptoms. Critical care attestation.: If time is entered above; I have spent that time in minutes in the direct care of this critically ill patient, excluding procedure time. ED Disposition Clinical Impression: Medication refill Disposition: TO HOME OR SELFCARE Is pt being admited?: No Does the pt Need Aspirin: No Condition: Stable Additional Instructions: Please take medication as prescribed. Please follow-up with the [facility] in the next 2-3 days. Future refills of your medications will need to be through a psychiatrist or a primary care doctor. Return to the emergency room for any new or worsening symptoms. Prescriptions: QUEtiapine [SEROquel] 200 mg PO BID #30 tablet Referrals: [facility] [Outside] - 2-3 Days [facility] [Provider Group] - 2-3 Days [facility] [Outside] - 2-3 Days [facility] [Outside] - 2-3 Days Time of Disposition: 09:52 Print Language: NORWE[place]
== END 2018-08-23 10:03 | disposition home or self-care (01) ==
LOC: ED 09:34
DX: F20.9 Schizophrenia, unspecified (principal); I10 Essential (primary) hypertension; Z21 Asymptomatic human immunodeficiency virus [HIV] infection status; Z76.0 Encounter for issue of repeat prescription
CPT/HCPCS: 99281

== ENCOUNTER 2018-10-12 09:34 | Emergency (ER) | payer MEDICAID ==
[2018-10-12 09:40] VITALS: BP 128/73
[2018-10-12 10:14] LABS: Basophils % (Auto) 0.5 % (0.0-1.8); Eosinophils # (Auto) 0.1 K/mm3 (0.0-0.4); Eosinophils % (Auto) 1.3 % (0.0-4.3); Hematocrit 45.8 % (30.3-42.9); Hemoglobin 15.8 gm/dl (10.1-14.3); Lymphocytes # (Auto) 2.6 K/mm3 (1.2-5.4); Lymphocytes % (Auto) 26.7 % (13.4-35.0); Mean Corpuscular HGB Conc 35 % (30-34); Mean Corpuscular Volume 96 fl (79-97); Monocytes # (Auto) 0.8 K/mm3 (0.0-0.8); Platelet Count 329 K/mm3 (140-440); Red Blood Count 4.79 M/mm3 (3.65-5.03); Red Cell Distribution Width 13.6 % (13.2-15.2)
[2018-10-12 10:24] LABS: BUN/Creatinine Ratio 12; Blood Urea Nitrogen 11 mg/dL (7-17); Calcium 9.2 mg/dL (8.4-10.2); Hemolysis Index 3
[2018-10-12] MEDS ORDERED: TYLENOL PO ONE (11:00)
[2018-10-12] MEDS ORDERED: TYLENOL ONE (11:08)
--- NOTE | 2018-10-12 11:18 | Emergency Department Report ---
ED General Adult HPI - General Chief complaint: Recheck/Abnormal Lab/Rx Stated complaint: REFILL PYSCH MEDS Time Seen by Provider: 10/12/18 10:48 Source: patient Mode of arrival: Ambulatory Limitations: No Limitations - History of Present Illness Initial comments: The patient presents to the emergency department with a chief complaint medication refills. Patient states she takes Seroquel daily for her schizophrenia and has been out of her medication for one day. Patient states that she has an appointment with her psychiatrist next Wednesday for medication refill. Patient states she is not homicidal or suicidal but does not want to be off her meds for that period of time. She also denies auditory or visual hallucinations currently. -: Gradual Severity scale (0 -10): 0 Consistency: constant Improves with: none Worsens with: none Associated Symptoms: denies other symptoms Treatments Prior to Arrival: none - Related Data Previous Rx's Medication Instructions Recorded Last Taken Type Lisinopril [Zestril TAB] 10 mg PO QDAY #30 tablet 09/21/16 Unknown Rx Atazanavir Sulfate [Reyataz] 300 mg PO QDAY #30 capsule 03/31/17 Unknown Rx Emtricitabine/Tenofovir (Tdf) 1 each PO DAILY #30 tablet 03/31/17 Unknown Rx [Truvada 167 mg-250 mg Tablet] Raltegravir Potassium [Isentress] 400 mg PO BID #60 tablet 03/31/17 Unknown Rx amLODIPine [Norvasc] 5 mg PO QDAY #30 tablet 03/31/17 Unknown Rx QUEtiapine [SEROquel] 200 mg PO BID #30 tablet 03/31/18 Unknown Rx Ibuprofen [Motrin] 800 mg PO Q8HR PRN #14 tablet 06/06/18 Unknown Rx QUEtiapine [SEROquel] 200 mg PO BID #30 tablet 08/23/18 Unknown Rx QUEtiapine [SEROquel] 100 mg PO BID #12 tab 10/12/18 Unknown Rx Allergies Allergy/AdvReac Type Severity Reaction Status Date / Time No Known Allergies Allergy Verified 10/12/18 09:35 ED Review of Systems ROS: Stated complaint: REFILL PYSCH MEDS Other details as noted in HPI Comment: All other systems reviewed and negative Constitutional: denies: chills, fever Eyes: denies: eye pain, eye discharge, vision change ENT: denies: ear pain, throat pain Respiratory: denies: cough, shortness of breath, wheezing Cardiovascular: denies: chest pain, palpitations Endocrine: no symptoms reported Gastrointestinal: denies: abdominal pain, nausea, diarrhea Genitourinary: denies: urgency, dysuria, discharge Musculoskeletal: denies: back pain, joint swelling, arthralgia Skin: denies: rash, lesions Neurological: denies: headache, weakness, paresthesias Psychiatric: denies: anxiety, depression Hematological/Lymphatic: denies: easy bleeding, easy bruising ED Past Medical Hx - Past Medical History Hx Hypertension: Yes Hx Congestive Heart Failure: No Hx Diabetes: Yes (diet controlled) Hx Psychiatric Treatment: Yes (Schizophrenia) Hx Asthma: No Hx COPD: No Hx HIV: Yes (on anti-virals) - Surgical History Additional Surgical History: Surgery on right arm and a Cyst removed from buttock - Social History Smoking Status: Never Smoker - Medications Home Medications: Home Medications Medication Instructions Recorded Confirmed Last Taken Type Lisinopril [Zestril TAB] 10 mg PO QDAY #30 tablet 09/21/16 Unknown Rx Atazanavir Sulfate [Reyataz] 300 mg PO QDAY #30 capsule 03/31/17 Unknown Rx Emtricitabine/Tenofovir (Tdf) 1 each PO DAILY #30 tablet 03/31/17 Unknown Rx [Truvada 167 mg-250 mg Tablet] Raltegravir Potassium [Isentress] 400 mg PO BID #60 tablet 03/31/17 Unknown Rx amLODIPine [Norvasc] 5 mg PO QDAY #30 tablet 03/31/17 Unknown Rx QUEtiapine [SEROquel] 200 mg PO BID #30 tablet 03/31/18 Unknown Rx Ibuprofen [Motrin] 800 mg PO Q8HR PRN #14 tablet 06/06/18 Unknown Rx QUEtiapine [SEROquel] 200 mg PO BID #30 tablet 08/23/18 Unknown Rx QUEtiapine [SEROquel] 100 mg PO BID #12 tab 10/12/18 Unknown Rx ED Physical Exam - General Limitations: No Limitations General appearance: alert, in no apparent distress - Head Head exam: Present: atraumatic, normocephalic - Eye Eye exam: Present: normal appearance, PERRL, EOMI - ENT ENT exam: Present: mucous membranes moist - Neck Neck exam: Present: normal inspection - Respiratory Respiratory exam: Present: normal lung sounds bilaterally. Absent: respiratory distress - Cardiovascular Cardiovascular Exam: Present: regular rate, normal rhythm. Absent: systolic murmur, diastolic murmur, rubs, gallop - GI/Abdominal GI/Abdominal exam: Present: soft, normal bowel sounds. Absent: distended, tenderness - Extremities Exam Extremities exam: Present: normal inspection - Back Exam Back exam: Present: normal inspection - Neurological Exam Neurological exam: Present: alert, oriented X3, CN II-XII intact. Absent: motor sensory deficit - Psychiatric Psychiatric exam: Present: normal affect, normal mood. Absent: homicidal ideation - Skin Skin exam: Present: warm, dry, intact, normal color. Absent: rash ED Course Vital Signs 10/12/18 09:39 Temperature 98.1 F Pulse Rate 83 Respiratory 18 Rate Blood Pressure 128/73 O2 Sat by Pulse 100 Oximetry ED Medical Decision Making - Lab Data Result diagrams: 10/12/18 09:56 10/12/18 09:56 Lab Results 10/12/18 10/12/18 10/12/18 Range/Units 09:56 09:56 09:56 WBC (4.5-11.0) K/mm3 RBC (3.65-5.03) M/mm3 Hgb (10.1-14.3) gm/dl Hct (30.3-42.9) % MCV (79-97) fl MCH (28-32) pg MCHC (30-34) % RDW (13.2-15.2) % Plt Count (140-440) K/mm3 Lymph % (Auto) (13.4-35.0) % [place] % (Auto) (0.0-7.3) % Eos % (Auto) (0.0-4.3) % Baso % (Auto) (0.0-1.8) % Lymph # (1.2-5.4) K/mm3 [place] # (0.0-0.8) K/mm3 Eos # (0.0-0.4) K/mm3 Baso # (0.0-0.1) K/mm3 Seg Neutrophils % (40.0-70.0) % Seg Neutrophils # (1.8-7.7) K/mm3 Sodium 139 (137-145) mmol/L Potassium 3.8 (3.6-5.0) mmol/L Chloride 105.1 (98-107) mmol/L Carbon Dioxide 21 L (22-30) mmol/L Anion Gap 17 mmol/L BUN 11 (7-17) mg/dL Creatinine 0.9 (0.7-1.2) mg/dL Estimated GFR > 60 ml/min BUN/Creatinine Ratio 12 % Glucose 159 H (65-100) mg/dL Calcium 9.2 (8.4-10.2) mg/dL HCG, Qual (Negative) Salicylates < 0.3 L (2.8-20.0) mg/dL Acetaminophen < 5.0 L (10.0-30.0) ug/mL Plasma/Serum Alcohol (0-0.07) % 10/12/18 10/12/18 10/12/18 Range/Units 09:56 09:56 09:56 WBC 9.9 (4.5-11.0) K/mm3 RBC 4.79 (3.65-5.03) M/mm3 Hgb 15.8 H (10.1-14.3) gm/dl Hct 45.8 H (30.3-42.9) % MCV 96 (79-97) fl MCH 33 H (28-32) pg MCHC 35 H (30-34) % RDW 13.6 (13.2-15.2) % Plt Count 329 (140-440) K/mm3 Lymph % (Auto) 26.7 (13.4-35.0) % [place] % (Auto) 8.0 H (0.0-7.3) % Eos % (Auto) 1.3 (0.0-4.3) % Baso % (Auto) 0.5 (0.0-1.8) % Lymph # 2.6 (1.2-5.4) K/mm3 [place] # 0.8 (0.0-0.8) K/mm3 Eos # 0.1 (0.0-0.4) K/mm3 Baso # 0.0 (0.0-0.1) K/mm3 Seg Neutrophils % 63.5 (40.0-70.0) % Seg Neutrophils # 6.3 (1.8-7.7) K/mm3 Sodium (137-145) mmol/L Potassium (3.6-5.0) mmol/L Chloride (98-107) mmol/L Carbon Dioxide (22-30) mmol/L Anion Gap mmol/L BUN (7-17) mg/dL Creatinine (0.7-1.2) mg/dL Estimated GFR ml/min BUN/Creatinine Ratio % Glucose (65-100) mg/dL Calcium (8.4-10.2) mg/dL HCG, Qual Negative (Negative) Salicylates (2.8-20.0) mg/dL Acetaminophen (10.0-30.0) ug/mL Plasma/Serum Alcohol < 0.01 (0-0.07) % - Medical Decision Making Plan of care discussed with patient Critical care attestation.: If time is entered above; I have spent that time in minutes in the direct care of this critically ill patient, excluding procedure time. ED Disposition Clinical Impression: Schizophrenia Disposition: DC-01 TO HOME OR SELFCARE Is pt being admited?: No Does the pt Need Aspirin: No Condition: Stable Instructions: Schizophrenia (ED) Additional Instructions: Return if you have homicidal or suicidal ideations(potential harm to self or others). Also return if you're having auditory or visual hallucinations. Prescriptions: QUEtiapine [SEROquel] 100 mg PO BID #12 tab Referrals: DHARA DANG MD [Primary Care Provider] - 3-5 Days Time of Disposition: 11:17
== END 2018-10-12 12:00 | disposition home or self-care (01) ==
LOC: ED 09:34
DX: F20.9 Schizophrenia, unspecified (principal); Z76.0 Encounter for issue of repeat prescription; I10 Essential (primary) hypertension; E11.9 Type 2 diabetes mellitus without complications; Z79.899 Other long term (current) drug therapy; Z79.1 Long term (current) use of non-steroidal anti-inflammatories (NSAID); Z21 Asymptomatic human immunodeficiency virus [HIV] infection status; Z98.890 Other specified postprocedural states
CPT/HCPCS: 36415; 80048; 80320; 84703; 85025; 99283; G0480

== ENCOUNTER 2018-11-16 09:56 | Emergency (ER) | payer MEDICAID ==
--- NOTE | 2018-11-16 10:37 | XRay Report ---
CHEST PA AND LATERAL VIEWS INDICATION: Chest Pain. COMPARISON: 08/18/2016. FINDINGS: Support devices: None. Heart: Within normal limits. Lungs/Pleura: No acute pulmonary or pleural findings. IMPRESSION: 1. No acute findings. Signer Name: Matty Zarate MD Signed: 11/16/2018 10:33 AM Workstation Name: [id number]
[2018-11-16 10:51] LABS: Basophils # (Auto) 0.1 K/mm3 (0.0-0.1); Basophils % (Auto) 0.6 % (0.0-1.8); Eosinophils # (Auto) 0.1 K/mm3 (0.0-0.4); Eosinophils % (Auto) 0.9 % (0.0-4.3); Hematocrit 42.7 % (30.3-42.9); Hemoglobin 14.5 gm/dl (10.1-14.3); Lymphocytes # (Auto) 2.1 K/mm3 (1.2-5.4); Lymphocytes % (Auto) 20.7 % (13.4-35.0); Mean Corpuscular HGB Conc 34 % (30-34); Mean Corpuscular Volume 94 fl (79-97); Monocytes # (Auto) 0.9 K/mm3 (0.0-0.8); Platelet Count 255 K/mm3 (140-440); Red Blood Count 4.53 M/mm3 (3.65-5.03); Red Cell Distribution Width 13.6 % (13.2-15.2)
[2018-11-16 11:10] LABS: Alanine Aminotransferase 20 units/L (7-56); Albumin 4.3 g/dL (3.9-5); BUN/Creatinine Ratio 15; Blood Urea Nitrogen 12 mg/dL (7-17); Calcium 9.1 mg/dL (8.4-10.2); Hemolysis Index 6
[2018-11-16] MEDS ORDERED: amLODIPine 5 MG TAB PO ONE ×2 (12:59→13:00)
[2018-11-16] MEDS ORDERED: amLODIPine 5 MG TAB ONE (12:59)
[2018-11-16] MEDS ORDERED: BENZONATATE 100 MG CAP PO ONE (13:10)
--- NOTE | 2018-11-16 13:54 | Emergency Department Report ---
ED General Adult HPI - General Chief complaint: Chest Pain Stated complaint: SOB/CHEST PAIN Time Seen by Provider: 11/16/18 12:37 Source: patient Mode of arrival: Ambulatory Limitations: No Limitations - History of Present Illness Initial comments: 53-year-old female presents with a constellation of symptoms which may be related to medical noncompliance with her Seroquel and or other medications. She states that yesterday she decided she needed to stop smoking so she put on a nicotine patch. She places on her left leg. Shortly thereafter she relates difficulty moving her left leg. This lasted for "a minute". She also states that she had a headache since last night. She appears to have a flight of ideas and loose associations. She does have a history of HIV. She does not relate chest pain or dyspnea at this time. She does not relate any leg pain or swelling. Family now state that the patient may be globally noncompliant with her medic ation. -: Gradual, minutes(s) Location: head, left (leg) Radiation: non-radiation Quality: aching Consistency: now resolved Improves with: none Worsens with: none Associated Symptoms: denies other symptoms Treatments Prior to Arrival: none - Related Data Home Medications Medication Instructions Recorded Confirmed Last Taken Emtricitabin/Tenofovir [TRUVADA 1 tab PO QDAY 11/16/18 11/16/18 Unknown 200-300 mg] Fluticasone [Flonase] 1 - 2 spray NS QDAY 11/16/18 11/16/18 Unknown Nicotine [Habitrol] 21 mg TD DAILY 11/16/18 11/16/18 11/15/18 Previous Rx's Medication Instructions Recorded Last Taken Type Lisinopril [Zestril TAB] 10 mg PO QDAY #30 tablet 09/21/16 Unknown Rx Raltegravir Potassium [Isentress] 400 mg PO BID #60 tablet 03/31/17 Unknown Rx amLODIPine [Norvasc] 5 mg PO QDAY #30 tablet 03/31/17 Unknown Rx Albuterol Sulfate [Proventil Hfa] 6.7 gm IH Q4H PRN #1 hfa.aer.ad 11/16/18 Unknown Rx QUEtiapine [SEROquel] 100 mg PO BID #12 tab 11/16/18 Unknown Rx Allergies Allergy/AdvReac Type Severity Reaction Status Date / Time No Known Allergies Allergy Verified 10/12/18 09:35 ED Review of Systems ROS: Stated complaint: SOB/CHEST PAIN Other details as noted in HPI Constitutional: denies: chills, fever Eyes: denies: eye pain, eye discharge, vision change ENT: denies: ear pain, throat pain Respiratory: cough (chronic nonproductive cough), wheezing (states sometimes does wheeze and used someone else's inhaler). denies: shortness of breath Cardiovascular: denies: chest pain, palpitations Endocrine: no symptoms reported Gastrointestinal: denies: abdominal pain, nausea, diarrhea Genitourinary: denies: urgency, dysuria, discharge Musculoskeletal: denies: back pain, joint swelling, arthralgia Skin: denies: rash, lesions Neurological: headache, weakness. denies: paresthesias Psychiatric: denies: anxiety, depression Hematological/Lymphatic: denies: easy bleeding, easy bruising ED Past Medical Hx - Past Medical History Hx Hypertension: Yes Hx Congestive Heart Failure: No Hx Diabetes: Yes (diet controlled) Hx Psychiatric Treatment: Yes (Schizophrenia) Hx Asthma: No Hx COPD: No Hx HIV: Yes (on anti-virals) - Surgical History Additional Surgical History: Surgery on right arm and a Cyst removed from buttoc k - Social History Smoking Status: Current Every Day Smoker - Medications Home Medications: Home Medications Medication Instructions Recorded Confirmed Last Taken Type Lisinopril [Zestril TAB] 10 mg PO QDAY #30 tablet 09/21/16 11/16/18 Unknown Rx Raltegravir Potassium [Isentress] 400 mg PO BID #60 tablet 03/31/17 11/16/18 Unknown Rx amLODIPine [Norvasc] 5 mg PO QDAY #30 tablet 03/31/17 11/16/18 Unknown Rx Albuterol Sulfate [Proventil Hfa] 6.7 gm IH Q4H PRN #1 hfa.aer.ad 11/16/18 Unknown Rx Emtricitabin/Tenofovir [TRUVADA 1 tab PO QDAY 11/16/18 11/16/18 Unknown History 200-300 mg] Fluticasone [Flonase] 1 - 2 spray NS QDAY 11/16/18 11/16/18 Unknown History Nicotine [Habitrol] 21 mg TD DAILY 11/16/18 11/16/18 11/15/18 History QUEtiapine [SEROquel] 100 mg PO BID #12 tab 11/16/18 Unknown Rx ED Physical Exam - General Limitations: No Limitations General appearance: alert, in no apparent distress - Head Head exam: Present: atraumatic, normocephalic - Eye Eye exam: Present: normal appearance, PERRL, EOMI. Absent: scleral icterus - ENT ENT exam: Present: mucous membranes moist - Neck Neck exam: Present: normal inspection - Respiratory Respiratory exam: Present: normal lung sounds bilaterally. Absent: respiratory distress - Cardiovascular Cardiovascular Exam: Present: regular rate, normal rhythm. Absent: systolic murmur, diastolic murmur, rubs, gallop - GI/Abdominal GI/Abdominal exam: Present: soft, normal bowel sounds. Absent: distended, tenderness, guarding, rebound - Extremities Exam Extremities exam: Present: normal inspection, normal capillary refill. Absent: pedal edema, joint swelling, calf tenderness - Back Exam Back exam: Present: normal inspection. Absent: CVA tenderness (R), CVA tenderness (L), muscle spasm, paraspinal tenderness, vertebral tenderness - Neurological Exam Neurological exam: Present: alert, oriented X3, CN II-XII intact, other (NIH score is 0. Cerebellar testing was normal gait is normal. Speech is fluent. ). Absent: motor sensory deficit - Psychiatric Psychiatric exam: Present: normal affect, manic (mildly), other (flight of ideas somewhat loose associations) - Skin Skin exam: Present: warm, dry, intact, normal color. Absent: rash ED Course Vital Signs 11/16/18 11/16/18 11/16/18 11:45 13:01 14:33 Pulse Rate 74 72 Respiratory 16 Rate Blood Pressure 181/95 Blood Pressure 175/91 167/91 [Left] O2 Sat by Pulse 97 Oximetry - Reevaluation(s) Reevaluation #1: CT no acute process. Patient now without headache. She is without complaints. She does have flight of ideas and is not agitated. Her sister is here now. She admits not going to return to the clinic recently and does not have an appointment. She states she has her medicine and she has been on compliant. She complains of some intermittent wheezing. She is appropriate for out-patient disposition and encouraged to make an appointment for follow-up at her [facility]. 11/16/18 15:05 ED Medical Decision Making - Lab Data Result diagrams: 11/16/18 10:08 11/16/18 10:08 Laboratory Results - last 24 hr 11/16/18 11/16/18 10:08 10:08 WBC 10.3 RBC 4.53 Hgb 14.5 H Hct 42.7 MCV 94 MCH 32 MCHC 34 RDW 13.6 Plt Count 255 Lymph % (Auto) 20.7 [place] % (Auto) 9.0 H Eos % (Auto) 0.9 Baso % (Auto) 0.6 Lymph # 2.1 [place] # 0.9 H Eos # 0.1 Baso # 0.1 Seg Neutrophils % 68.8 Seg Neutrophils # 7.0 Sodium 139 Potassium 3.8 Chloride 104.1 Carbon Dioxide 23 Anion Gap 16 BUN 12 Creatinine 0.8 Estimated GFR > 60 BUN/Creatinine Ratio 15 Glucose 119 H Calcium 9.1 Total Bilirubin 0.40 AST 26 ALT 20 Alkaline Phosphatase 88 Troponin T < 0.010 Total Protein 8.5 H Albumin 4.3 Albumin/Globulin Ratio 1.0 - EKG Data -: EKG Interpreted by Ms EKG shows normal: sinus rhythm, axis (normal axis), intervals (slightly prolonged MO interval), QRS complexes (QST to not uncommon and LVH) - EKG Data Interpretation: nonspecific ST-T wave radha, LVH - Radiology Data Radiology results: report reviewed, image reviewed (chest x-ray no acute process consider chronic lung) Critical care attestation.: If time is entered above; I have spent that time in minutes in the direct care of this critically ill patient, excluding procedure time. ED Disposition Clinical Impression: Anxiety with somatization, HIV positive Schizophrenia Qualifiers: Schizophrenia type: other Qualified Code(s): F20.89 - Other schizophrenia; F20.8 - Other schizophrenia Cephalalgia Qualifiers: Headache type: unspecified Headache chronicity pattern: acute headache Intractability: not intractable Qualified Code(s): R51 - Headache COPD (chronic obstructive pulmonary disease) Qualifiers: COPD type: unspecified COPD Qualified Code(s): J44.9 - Chronic obstructive pulmonary disease, unspecified Disposition: DC- TO HOME OR SELFCARE Is pt being admited?: No Does the pt Need Aspirin: No Condition: Stable Instructions: Chronic Obstructive Pulmonary Disease (ED), Acute Headache (ED) Additional Instructions: Follow-up with your [facility] clinic and primary care. Return to the emergency department any acute change or problem. Prescriptions: Albuterol Sulfate [Proventil Hfa] 6.7 gm IH Q4H PRN #1 hfa.aer.ad PRN Reason: wheezing QUEtiapine [SEROquel] 100 mg PO BID #12 tab Referrals: DHARA DANG MD [Primary Care Provider] - [facility] Time of Disposition: 15:09
--- NOTE | 2018-11-16 14:19 | Cat Scan Report ---
CT BRAIN: 11/16/2018 INDICATION / CLINICAL INFORMATION: H/A HIV transient l leg weakness. COMPARISON: None available. FINDINGS: BRAIN/INTRACRANIAL STRUCTURES: Unenhanced CT images of the brain demonstrate no evidence of acute int racranial abnormality. Ventricles and sulci are normal in size and shape. There is no CT evidence of acute ischemic injury, hemorrhage, or mass. There are no abnormal extra-ax ial fluid collections. EXTRACRANIAL STRUCTURES: Unremarkable. IMPRESSION: Negative unenhanced CT of the brain. All CT scans at this location are performed using dose reduction to ALARA by means of automated expos ure control. Signer Name: Kush Kumar MD Signed: 11/16/2018 2:14 PM Workstation Name: [id number]
[2018-11-16 14:33] VITALS: BP 167/91
== END 2018-11-16 15:18 | disposition home or self-care (01) ==
LOC: ED 09:56
DX: F41.9 Anxiety disorder, unspecified (principal); J44.9 Chronic obstructive pulmonary disease, unspecified; F20.9 Schizophrenia, unspecified; I10 Essential (primary) hypertension; E11.9 Type 2 diabetes mellitus without complications; Z79.899 Other long term (current) drug therapy; R51 Headache
CPT/HCPCS: 36415; 70450; 71046; 80053; 84484; 85025; 93005; 93010; 99284

== ENCOUNTER 2019-01-26 12:28 | Emergency (ER) | payer MEDICAID ==
[2019-01-26 12:39] VITALS: BP 159/97
--- NOTE | 2019-01-26 12:41 | Emergency Department Report ---
ED Recheck HPI - General Chief Complaint: Medical Clearance Stated Complaint: MED REFILL Time Seen by Provider: 01/26/19 12:32 Source: patient Mode of arrival: Ambulatory Limitations: No Limitations - History of Present Illness Initial Comments: This is a 53-year-old female nontoxic well in appearance with no signs of distress presents to the ED with complaint of medication refill. Patient stated has been out of her Seroquel for about a week. Stated if she does not take it more she will started to become Schzo and depression. Patient denies any SI/HI. Denies any symptoms now.. Patient denies any other symptoms. Denies any fever, chills, headache, nausea, vomiting, chest pain or SOB. Denies any other complaints. MD Complaint: medication refill request -: week(s) (1) Returns Today for: request for prescription Symptoms Since Prior Visit: no new symptoms Context: ran out of medication Associated Symptoms: none - Related Data Home Medications Medication Instructions Recorded Confirmed Last Taken Emtricitabin/Tenofovir [TRUVADA 1 tab PO QDAY 11/16/18 11/16/18 Unknown 200-300 mg] Fluticasone [Flonase] 1 - 2 spray NS QDAY 11/16/18 11/16/18 Unknown Nicotine [Habitrol] 21 mg TD DAILY 11/16/18 11/16/18 11/15/18 Previous Rx's Medication Instructions Recorded Last Taken Type Raltegravir Potassium [Isentress] 400 mg PO BID #60 tablet 03/31/17 Unknown Rx Albuterol Sulfate [Proventil Hfa] 6.7 gm IH Q4H PRN #1 hfa.aer.ad 11/16/18 Unknown Rx Lisinopril [Zestril TAB] 10 mg PO QDAY #30 tablet 11/16/18 Unknown Rx QUEtiapine [SEROquel] 100 mg PO BID #12 tab 11/16/18 Unknown Rx amLODIPine 5 mg PO QDAY #30 tablet 11/16/18 Unknown Rx QUEtiapine [SEROquel] 100 mg PO BID #12 tab 01/26/19 Unknown Rx Allergies Allergy/AdvReac Type Severity Reaction Status Date / Time No Known Allergies Allergy Verified 10/12/18 09:35 ED Review of Systems ROS: Stated complaint: MED REFILL Other details as noted in HPI Constitutional: denies: chills, fever Eyes: denies: eye pain, eye discharge, vision change ENT: denies: ear pain, throat pain Respiratory: denies: cough, shortness of breath, wheezing Cardiovascular: denies: chest pain, palpitations Endocrine: no symptoms reported Gastrointestinal: denies: abdominal pain, nausea, diarrhea Genitourinary: denies: urgency, dysuria, discharge Musculoskeletal: denies: back pain, joint swelling, arthralgia Skin: denies: rash, lesions Neurological: denies: headache, weakness, paresthesias Psychiatric: denies: anxiety, depression Hematological/Lymphatic: denies: easy bleeding, easy bruising ED Past Medical Hx - Past Medical History Hx Hypertension: Yes Hx Congestive Heart Failure: No Hx Diabetes: Yes (diet controlled) Hx Psychiatric Treatment: Yes (Schizophrenia) Hx Asthma: No Hx COPD: No Hx HIV: Yes (on anti-virals) - Surgical History Past Surgical History?: No Additional Surgical History: Surgery on right arm and a Cyst removed from buttock - Social History Smoking Status: Current Every Day Smoker - Medications Home Medications: Home Medications Medication Instructions Recorded Confirmed Last Taken Type Raltegravir Potassium [Isentress] 400 mg PO BID #60 tablet 03/31/17 11/16/18 Unknown Rx Albuterol Sulfate [Proventil Hfa] 6.7 gm IH Q4H PRN #1 hfa.aer.ad 11/16/18 Unknown Rx Emtricitabin/Tenofovir [TRUVADA 1 tab PO QDAY 11/16/18 11/16/18 Unknown History 200-300 mg] Fluticasone [Flonase] 1 - 2 spray NS QDAY 11/16/18 11/16/18 Unknown History Lisinopril [Zestril TAB] 10 mg PO QDAY #30 tablet 11/16/18 Unknown Rx Nicotine [Habitrol] 21 mg TD DAILY 11/16/18 11/16/18 11/15/18 History QUEtiapine [SEROquel] 100 mg PO BID #12 tab 11/16/18 Unknown Rx amLODIPine 5 mg PO QDAY #30 tablet 11/16/18 Unknown Rx QUEtiapine [SEROquel] 100 mg PO BID #12 tab 01/26/19 Unknown Rx ED Physical Exam - General Limitations: No Limitations General appearance: alert, in no apparent distress - Head Head exam: Present: atraumatic, normocephalic - Neck Neck exam: Present: normal inspection, full ROM - Extremities Exam Extremities exam: Present: full ROM - Back Exam Back exam: Present: full ROM - Neurological Exam Neurological exam: Present: alert, oriented X3, normal gait - Psychiatric Psychiatric exam: Present: normal affect, normal mood. Absent: depressed, agitated, anxious, flat affect, manic, homicidal ideation, suicidal ideation - Skin Skin exam: Present: warm, dry, intact, normal color. Absent: rash ED Course - Reevaluation(s) Reevaluation #1: 01/26/19 12:39 Patient is speaking in full sentences with no signs of distress noted. ED Recheck MDM - Medical Decision Making I discussed the importance of follow-up with PCP for medication refills. Do to patient will becoming harm to self/other if medications not started again, I will refill patients medication. She had strict instructions to see PCP and has been given many referral to see providers. Patient was instructed to Follow-up with a primary care doctor in 2 days or if symptoms worsen and continue return to emergency room as soon as possible. At time of discharge, the patient does not seem toxic or ill in appearance. No acute signs of distress noted. Patient agrees to discharge treatment plan of care. No further questions noted by the patient. Critical care attestation.: If time is entered above; I have spent that time in minutes in the direct care of this critically ill patient, excluding procedure time. ED Disposition Clinical Impression: Medication refill Disposition: DC-01 TO HOME OR SELFCARE Is pt being admited?: No Does the pt Need Aspirin: No Condition: Stable Instructions: Quetiapine (By mouth) Additional Instructions: Follow-up with a primary care doctor in 2 days or if symptoms worsen and continue return to emergency room as soon as possible. Prescriptions: QUEtiapine [SEROquel] 100 mg PO BID #12 tab Referrals: KEILA PEÑA MD [Staff Physician] - 2-3 Days [facility] [Outside] - 2-3 Days MIHIR MORRISSEY MD [Staff Physician] - 2-3 Days PRIMARY CAREMD [Referring] - 2-3 Days [facility] [Outside] - 2-3 Days
== END 2019-01-26 13:38 | disposition home or self-care (01) ==
LOC: ED 12:28
DX: F20.9 Schizophrenia, unspecified (principal); F32.9 Major depressive disorder, single episode, unspecified; Z76.0 Encounter for issue of repeat prescription
CPT/HCPCS: 99281

== ENCOUNTER 2019-02-10 11:10 | Emergency (ER) | payer MEDICAID ==
[2019-02-10 11:44] VITALS: BP 127/76
--- NOTE | 2019-02-10 11:48 | Emergency Department Report ---
Chief Complaint: Recheck/Abnormal Lab/Rx Stated Complaint: MED REFILL Time Seen by Provider: 02/10/19 11:42 - HPI History of Present Illness: This is a 53-year-old female that presents with nonmedical emergency complaint. Patient requesting refill of seroquel medication. PMH of schizophrenia, HIV, DM2, anxiety, & HTN. Patient states she went to [facility] yesterday and unsuccessful with getting refills. She is scheduled for appointment to see psychiatrist 03/14/2018. She is requesting medication until appointment. Patient denies SI/HI, fever, chills, headache, nausea, vomiting, chest pain or SOB. Denies any other complaints. - ROS Review of Systems: ROS: Stated complaint: MED REFILL Other details as noted in HPI Constitutional: denies: chills, fever Eyes: denies: eye pain, eye discharge, vision change ENT: denies: ear pain, throat pain Respiratory: denies: cough, shortness of breath, wheezing Cardiovascular: denies: chest pain, palpitations Endocrine: no symptoms reported Gastrointestinal: denies: abdominal pain, nausea, diarrhea Genitourinary: denies: urgency, dysuria, discharge Musculoskeletal: denies: back pain, joint swelling, arthralgia Skin: denies: rash, lesions Neurological: denies: headache, weakness, paresthesias Psychiatric: denies: anxiety, depression Hematological/Lymphatic: denies: easy bleeding, easy bruising - Exam Vital Signs: Vital Signs 02/10/19 11:42 Temperature 98.6 F Pulse Rate 80 Respiratory 18 Rate Blood Pressure 127/76 O2 Sat by Pulse 98 Oximetry Physical Exam: General Limitations: No Limitations General appearance: alert, in no apparent distress - Head Head exam: Present: atraumatic, normocephalic - Neck Neck exam: Present: normal inspection, full ROM - Extremities Exam Extremities exam: Present: full ROM - Back Exam Back exam: Present: full ROM - Neurological Exam Neurological exam: Present: alert, oriented X3, normal gait - Psychiatric Psychiatric exam: Present: normal affect, normal mood. Absent: depressed, agitated, anxious, flat affect, manic, homicidal ideation, suicidal ideation - Skin Skin exam: Present: warm, dry, intact, normal color. Absent: rash MSE screening note: Focused history and physical exam performed. Due to findings the following was ordered: ED Medical Decision Making - Medical Decision Making This is a 53 y.o. F. that presents to the ER for medication refills. PMH of schizophrenia, HIV, DM2, anxiety, & HTN. Patient was seen at [facility] yesterday. Discharged without refills and scheduled appointment 03/14/2019. Patient states she ran out of medication 3 days ago and started to feel aches and change in mood. She denies SI/HI. Start seroquel. Instructed to keep appointment with [facility] for next month. Discharged home stable. ED Disposition for MSE Clinical Impression: Medication refill Disposition: DC- TO HOME OR SELFCARE Is pt being admited?: No Condition: Stable Instructions: Schizophrenia (ED) Additional Instructions: Make sure you keep your appointment with the [facility] on 03/14/2018 for further refills. Follow-up with a primary care doctor in 2 days or if symptoms worsen and continue return to emergency room as soon as possible. Prescriptions: QUEtiapine [SEROquel] 100 mg PO BID #30 tab Referrals: [facility] [Outside] - 3-5 Days [facility] [Outside] - 3-5 Days Forms: Work/School Release Form(ED) Time of Disposition: 12:07
== END 2019-02-10 12:15 | disposition home or self-care (01) ==
LOC: ED 11:10
DX: F20.9 Schizophrenia, unspecified (principal); Z76.0 Encounter for issue of repeat prescription
CPT/HCPCS: 99281

== ENCOUNTER 2019-02-22 19:04 | Emergency (ER) | payer MEDICAID ==
[2019-02-22 19:20] VITALS: BP 143/87
--- NOTE | 2019-02-22 19:57 | Event Note ---
ED Screening Note Date of service: 02/22/19 Time: 19:53 ED Screening Note: this 53 y o female presents to Ed requesting her seroquel refill. She denies any symptoms and states she jst started a new program She denies SI/HI or any other symptoms This initial assessment/diagnostic orders/clinical plan/treatment(s) is/are subject to change based on patients health status, clinical progression and re- assessment by fellow clinical providers in the ED. Further treatment and workup at subsequent clinical providers discretion. Patient/guardian urged not to elope from the ED as their condition may be serious if not clinically assessed and managed. Initial orders include: Pt presents with a non-medical emergency Examination is normal, Vital sign are stable Pt given information for clinics to follow up with pcp for further treatment and evaluation Also discussed strict return precautions in detail with pt who verbalized understanding
== END 2019-02-22 20:00 | disposition left against medical advice (07) ==
LOC: ED 19:04
DX: F20.9 Schizophrenia, unspecified (principal); Z76.0 Encounter for issue of repeat prescription
CPT/HCPCS: 99281

== ENCOUNTER 2019-07-19 09:04 | Emergency (ER) | payer MEDICAID ==
[2019-07-19 09:27] VITALS: BP 149/88
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
== END 2019-07-19 12:30 | disposition left against medical advice (07) ==
LOC: ED 09:04
DX: M54.6 Pain in thoracic spine (principal); M25.562 Pain in left knee; M25.561 Pain in right knee; Z71.1 Person with feared health complaint in whom no diagnosis is made
CPT/HCPCS: 99281

== ENCOUNTER 2020-01-16 06:34 | Emergency (ER) | payer MEDICAID ==
[2020-01-16 07:19] VITALS: BP 139/84
--- NOTE | 2020-01-16 10:11 | Emergency Department Report ---
ED ENT HPI - General Chief complaint: Sore Throat Stated complaint: SORE THROAT Time Seen by Provider: 01/16/20 09:55 Source: patient Mode of arrival: Ambulatory Limitations: No Limitations - History of Present Illness Initial comments: 54-year-old female with a past medical history of HIV, hypertension, diabetes currently diet-controlled presents to the ER today complaint of bumps to the back of her tongue. Patient states that about 2 days ago she started feeling like her throat was swollen and painful. She said at the time she had some difficulty swallowing but she states that this has since improved. She states that she is not able to drink, and eat food. But she states that was concerning her was when she put her hand to the back of her throat/tongue she felt bumps to the back of her tongue and did not know what it was from and so decided to come to the ER to have it checked. She denies any fever or chills. She denies any drooling or trismus. Patient is unsure of viral load or CD4 alcohol, but she keeps saying "I am good, I take my medications, and I see my doctor." complaint: other (bumps on back of tongue) -: days(s) (3) - Related Data Home Medications Medication Instructions Recorded Confirmed Last Taken Emtricitabin/Tenofovir [TRUVADA 1 tab PO QDAY 11/16/18 11/16/18 Unknown 200-300 mg] Fluticasone [Flonase] 1 - 2 spray NS QDAY 11/16/18 11/16/18 Unknown Nicotine [Habitrol] 21 mg TD DAILY 11/16/18 11/16/18 11/15/18 Previous Rx's Medication Instructions Recorded Last Taken Type Raltegravir Potassium [Isentress] 400 mg PO BID #60 tablet 03/31/17 Unknown Rx Albuterol Sulfate [Proventil Hfa] 6.7 gm IH Q4H PRN #1 hfa.aer.ad 11/16/18 Unknown Rx amLODIPine 5 mg PO QDAY #30 tablet 11/16/18 Unknown Rx lisinopriL [Zestril TAB] 10 mg PO QDAY #30 tablet 11/16/18 Unknown Rx QUEtiapine [SEROquel] 100 mg PO BID #30 tab 02/10/19 Unknown Rx Allergies Allergy/AdvReac Type Severity Reaction Status Date / Time No Known Allergies Allergy Verified 02/10/19 11:12 ED Dental HPI - General Chief complaint: Sore Throat Stated complaint: SORE THROAT Time Seen by Provider: 01/16/20 09:55 Source: patient Mode of arrival: Ambulatory Limitations: No Limitations - Related Data Home Medications Medication Instructions Recorded Confirmed Last Taken Emtricitabin/Tenofovir [TRUVADA 1 tab PO QDAY 11/16/18 11/16/18 Unknown 200-300 mg] Fluticasone [Flonase] 1 - 2 spray NS QDAY 11/16/18 11/16/18 Unknown Nicotine [Habitrol] 21 mg TD DAILY 11/16/18 11/16/18 11/15/18 Previous Rx's Medication Instructions Recorded Last Taken Type Raltegravir Potassium [Isentress] 400 mg PO BID #60 tablet 03/31/17 Unknown Rx Albuterol Sulfate [Proventil Hfa] 6.7 gm IH Q4H PRN #1 hfa.aer.ad 11/16/18 Unknown Rx amLODIPine 5 mg PO QDAY #30 tablet 11/16/18 Unknown Rx lisinopriL [Zestril TAB] 10 mg PO QDAY #30 tablet 11/16/18 Unknown Rx QUEtiapine [SEROquel] 100 mg PO BID #30 tab 02/10/19 Unknown Rx Allergies Allergy/AdvReac Type Severity Reaction Status Date / Time No Known Allergies Allergy Verified 02/10/19 11:12 ED Review of Systems ROS: Stated complaint: SORE THROAT Other details as noted in HPI Comment: All other systems reviewed and negative Constitutional: denies: chills, fever Eyes: denies: eye pain, eye discharge, vision change ENT: throat pain, other. denies: ear pain (bumps back of tongue), dental pain, congestion Cardiovascular: denies: chest pain, palpitations Gastrointestinal: denies: abdominal pain, nausea, diarrhea Genitourinary: denies: urgency, dysuria, discharge Musculoskeletal: denies: back pain, joint swelling, arthralgia Skin: denies: rash, lesions Psychiatric: denies: anxiety, depression ED Past Medical Hx - Past Medical History Previous Medical History?: Yes Hx Hypertension: Yes Hx Congestive Heart Failure: No Hx Diabetes: Yes (diet controlled) Hx Psychiatric Treatment: Yes (Schizophrenia) Hx Asthma: No Hx COPD: No Hx HIV: Yes (on anti-virals) - Surgical History Past Surgical History?: Yes Additional Surgical History: Surgery on right arm and a Cyst removed from buttock - Social History Smoking Status: Current Every Day Smoker Substance Use Type: None - Medications Home Medications: Home Medications Medication Instructions Recorded Confirmed Last Taken Type Raltegravir Potassium [Isentress] 400 mg PO BID #60 tablet 03/31/17 11/16/18 Unknown Rx Albuterol Sulfate [Proventil Hfa] 6.7 gm IH Q4H PRN #1 hfa.aer.ad 11/16/18 Unknown Rx Emtricitabin/Tenofovir [TRUVADA 1 tab PO QDAY 11/16/18 11/16/18 Unknown History 200-300 mg] Fluticasone [Flonase] 1 - 2 spray NS QDAY 11/16/18 11/16/18 Unknown History Nicotine [Habitrol] 21 mg TD DAILY 11/16/18 11/16/18 11/15/18 History amLODIPine 5 mg PO QDAY #30 tablet 11/16/18 Unknown Rx lisinopriL [Zestril TAB] 10 mg PO QDAY #30 tablet 11/16/18 Unknown Rx QUEtiapine [SEROquel] 100 mg PO BID #30 tab 02/10/19 Unknown Rx ED Physical Exam - General Limitations: No Limitations General appearance: alert, in no apparent distress - Head Head exam: Present: atraumatic, normocephalic, normal inspection - Eye Eye exam: Present: normal appearance - ENT ENT exam: Present: normal exam, mucous membranes moist, other (Mild erythema noted to posterior pharynx including tonsils, but there is no tonsillar swelling, or exudates to the tonsils. No apparent swelling noted to the uvula or deviation of the uvula. Patient does have some prominent is positive posterior dorsal aspect of her tongue but otherwise I do not see any evidence of ulcerations, no thrush, no tongue swelling, no significant abnormalities to the buccal mucosa or to the gum; she has no trismus or drooling.) - Neck Neck exam: Present: normal inspection, lymphadenopathy (Anterior cervical adenopathy). Absent: meningismus - Respiratory Respiratory exam: Absent: respiratory distress - Cardiovascular Cardiovascular Exam: Present: regular rate - Neurological Exam Neurological exam: Present: alert, oriented X3, CN II-XII intact, normal gait - Psychiatric Psychiatric exam: Present: normal affect, normal mood - Skin Skin exam: Present: intact ED Course Vital Signs 01/16/20 07:14 Temperature 97.9 F Pulse Rate 83 Respiratory 18 Rate Blood Pressure 139/84 [Right] O2 Sat by Pulse 99 Oximetry ED Medical Decision Making - Medical Decision Making Patient presented to the ER with complaints of bumps to the tongue. Patient states that 3 days ago she started with sore throat, difficulty swallowing felt like her throat was swollen but she states that this has all since resolved. She is able to tolerate p.o. fluids and solids. She states that she came in because she was just concerned about the bumps on the back of her tongue because she has never noticed them before. Rapid strep here in the ER today negative. Overall physical exam shows a well-appearing female who is not in any acute dis tress. There is no trismus or drooling on exam. Her airway is intact. No tracheal deviation on exam. No voice change. no ulcerations noted or evidence of thrush. At this time her history, exam and current condition does not suggest an infectious process such as retropharyngeal abscess, epiglottitis, peritonsillar abscess, Anjum angina, sepsis, mass or any other significant pathology warranting further testing, continued ED treatment, admission, consultation at this time. Discussed suspected diagnosis and treatment plan with patient. Patient is currently stable and is appropriate for discharge. Critical care attestation.: If time is entered above; I have spent that time in minutes in the direct care of this critically ill patient, excluding procedure time. ED Disposition Clinical Impression: Pharyngitis, Normal tongue exam Disposition: TO HOME OR SELFCARE Is pt being admited?: No Does the pt Need Aspirin: No Condition: Stable Additional Instructions: you can do salt water gargles or non alcoholic mouth wash. I recommend follow up with PCP. Return to ED if worse. Referrals: KEILA PEÑA MD [Staff Physician] - 3-5 Days Time of Disposition: 10:41
== END 2020-01-16 10:40 | disposition home or self-care (01) ==
LOC: ED 06:34
DX: J02.9 Acute pharyngitis, unspecified (principal); I10 Essential (primary) hypertension; E11.9 Type 2 diabetes mellitus without complications; F25.0 Schizoaffective disorder, bipolar type; F17.200 Nicotine dependence, unspecified, uncomplicated; Z21 Asymptomatic human immunodeficiency virus [HIV] infection status; Z01.20 Encounter for dental examination and cleaning without abnormal findings; Z79.899 Other long term (current) drug therapy
CPT/HCPCS: 87116; 87430; 99283

== ENCOUNTER 2020-04-03 15:51 | Emergency (ER) | payer MEDICAID ==
[2020-04-03] MEDS ORDERED: SODIUM CHLORIDE 0.9% 1000 ML 1,000 ML IV ONE (16:39)
--- NOTE | 2020-04-03 16:42 | Event Note ---
ED Screening Note Date of service: 04/03/20 Time: 16:39 ED Screening Note: 55 YEAR OLD FEMALE WITH PMHX OF HTN, TOBACCO USE, ANXIETY PRESENTS TO ED C/O DIZZINESS, LIGHTHEADEDNESS, NEAR SYNCOPE INTERMITTENTLY X 3 DAYS. SHE REPORTS HER SISTER CHECKED HER BP TODAY AND IT WAS LOW 107/65 AND SHE WAS INSTRUCTED TO COME TO ED BY HER SISTER AND PCP. SHE STATES SHE HAD CP AND SOB EARLIER TODAY BUT BOTH HAS RESOLVED. SHE BELIEVED THEY WERE RELATED TO ANXIETY ATTACK SHE MAY HAVE HAD EARLIER TODAY. This initial assessment/diagnostic orders/clinical plan/treatment(s) is/are subject to change based on patients health status, clinical progression and re- assessment by fellow clinical providers in the ED. Further treatment and workup at subsequent clinical providers discretion. Patient/guardian urged not to elope from the ED as their condition may be serious if not clinically assessed and managed. Initial orders include: CBC, CMP, EKG, UDS, HCG, TROP, CXR, HEAD CT
[2020-04-03 16:48] VITALS: BP 149/85
--- NOTE | 2020-04-03 17:15 | Cat Scan Report ---
CT BRAIN: 04/03/2020 INDICATION / CLINICAL INFORMATION: DIZZY. COMPARISON: 11/16/2018 FINDINGS: BRAIN/INTRACRANIAL STRUCTURES: Unenhanced CT images of the brain demonstrate no evidence of acute int racranial abnormality. Ventricles and sulci are normal in size and shape. There is no evidence of acute ischemic injury, hemorrhage, or mass. There are no abnormal extra-axial fluid collections. EXTRACRANIAL STRUCTURES: Unremarkable. IMPRESSION: No acute abnormality. No significant change when compared to 11/16/2018. All CT scans at this location are performed using dose reduction to ALARA by means of automated expos ure control. Signer Name: Kush Kumar MD Signed: 04/03/2020 5:11 PM Workstation Name: [id number]
--- NOTE | 2020-04-03 17:17 | XRay Report ---
XR chest routine 2V INDICATION / CLINICAL INFORMATION: Dizzy. COMPARISON: 11/16/2018 FINDINGS: SUPPORT DEVICES: None. HEART /PULMONARY VASCULATURE: No significant abnormality. LUNGS / PLEURA: No significant pulmonary or pleural abnormality. No pneumothorax. ADDITIONAL FINDINGS: No significant additional findings. IMPRESSION: 1. No acute findings. Signer Name: Doug Ley MD Signed: 04/03/2020 5:13 PM Workstation Name: [id number]
[2020-04-03 17:30] LABS: Basophils % (Auto) 0.4 % (0.0-1.8); Eosinophils # (Auto) 0.2 K/mm3 (0.0-0.4); Eosinophils % (Auto) 2.4 % (0.0-4.3); Hematocrit 41.9 % (30.3-42.9); Hemoglobin 14.5 gm/dl (10.1-14.3); Lymphocytes # (Auto) 4.5 K/mm3 (1.2-5.4); Lymphocytes % (Auto) 48.3 % (13.4-35.0); Mean Corpuscular HGB Conc 35 % (30-34); Mean Corpuscular Volume 97 fl (79-97); Monocytes # (Auto) 0.9 K/mm3 (0.0-0.8); Monocytes % (Auto) 9.8 % (0.0-7.3); Platelet Count 268 K/mm3 (140-440); Red Blood Count 4.33 M/mm3 (3.65-5.03); Red Cell Distribution Width 13.5 % (13.2-15.2)
[2020-04-03 17:59] LABS: Alanine Aminotransferase 14 units/L (7-56); Albumin 4.3 g/dL (3.9-5); BUN/Creatinine Ratio 16; Blood Urea Nitrogen 14 mg/dL (7-17); Calcium 9.4 mg/dL (8.4-10.2); Hemolysis Index 22
--- NOTE | 2020-04-03 19:55 | Emergency Department Report ---
ED General Adult HPI - General Chief complaint: Dizziness Stated complaint: LOW BLOOD PRESSURE Time Seen by Provider: 04/03/20 16:35 Source: patient Mode of arrival: Ambulatory Limitations: No Limitations - History of Present Illness Initial comments: The patient presents to the emergency department the chief complaint of dizziness that has been present for the last 3 days. Patient states when she bends over to get something out of it she gets really dizzy and feels like her eyes are going to pop out. She denies passing out. Patient states she is drinking a lot of lifting ice tea but not drinking a lot of water. Patient also endorses marijuana use. Patient states earlier today she had a panic attack with some chest tightness but denies any geovanny chest pain then or currently. Patient denies shortness of breath, headache, abdominal pain. -: Sudden Severity scale (0 -10): 0 Consistency: now resolved Improves with: none Worsens with: none Associated Symptoms: denies other symptoms Treatments Prior to Arrival: none - Related Data Home Medications Medication Instructions Recorded Confirmed Last Taken Emtricitabin/Tenofovir [TRUVADA 1 tab PO QDAY 11/16/18 11/16/18 Unknown 200-300 mg] Fluticasone [Flonase] 1 - 2 spray NS QDAY 11/16/18 11/16/18 Unknown Nicotine [Habitrol] 21 mg TD DAILY 11/16/18 11/16/18 11/15/18 Previous Rx's Medication Instructions Recorded Last Taken Type Raltegravir Potassium [Isentress] 400 mg PO BID #60 tablet 03/31/17 Unknown Rx Albuterol Sulfate [Proventil Hfa] 6.7 gm IH Q4H PRN #1 hfa.aer.ad 11/16/18 Unknown Rx amLODIPine 5 mg PO QDAY #30 tablet 11/16/18 Unknown Rx lisinopriL [Zestril TAB] 10 mg PO QDAY #30 tablet 11/16/18 Unknown Rx QUEtiapine [SEROquel] 100 mg PO BID #30 tab 02/10/19 Unknown Rx Allergies Allergy/AdvReac Type Severity Reaction Status Date / Time No Known Allergies Allergy Verified 02/10/19 11:12 ED Review of Systems ROS: Stated complaint: LOW BLOOD PRESSURE Other details as noted in HPI Comment: All other systems reviewed and negative Constitutional: denies: chills, fever Eyes: denies: eye pain, eye discharge, vision change ENT: denies: ear pain, throat pain Respiratory: denies: cough, shortness of breath, wheezing Cardiovascular: denies: chest pain, palpitations Endocrine: no symptoms reported Gastrointestinal: denies: abdominal pain, nausea, diarrhea Genitourinary: denies: urgency, dysuria, discharge Musculoskeletal: denies: back pain, joint swelling, arthralgia Skin: denies: rash, lesions Neurological: denies: headache, weakness, paresthesias Psychiatric: denies: anxiety, depression Hematological/Lymphatic: denies: easy bleeding, easy bruising ED Past Medical Hx - Past Medical History Previous Medical History?: Yes Hx Hypertension: Yes Hx Congestive Heart Failure: No Hx Diabetes: Yes (diet controlled) Hx Psychiatric Treatment: Yes (Schizophrenia) Hx Asthma: No Hx COPD: No Hx HIV: Yes (on anti-virals) - Surgical History Past Surgical History?: Yes Additional Surgical History: Surgery on right arm and a Cyst removed from buttock - Social History Smoking Status: Current Every Day Smoker Substance Use Type: None - Medications Home Medications: Home Medications Medication Instructions Recorded Confirmed Last Taken Type Raltegravir Potassium [Isentress] 400 mg PO BID #60 tablet 03/31/17 11/16/18 Unknown Rx Albuterol Sulfate [Proventil Hfa] 6.7 gm IH Q4H PRN #1 hfa.aer.ad 11/16/18 Unknown Rx Emtricitabin/Tenofovir [TRUVADA 1 tab PO QDAY 11/16/18 11/16/18 Unknown History 200-300 mg] Fluticasone [Flonase] 1 - 2 spray NS QDAY 11/16/18 11/16/18 Unknown History Nicotine [Habitrol] 21 mg TD DAILY 11/16/18 11/16/18 11/15/18 History amLODIPine 5 mg PO QDAY #30 tablet 11/16/18 Unknown Rx lisinopriL [Zestril TAB] 10 mg PO QDAY #30 tablet 11/16/18 Unknown Rx QUEtiapine [SEROquel] 100 mg PO BID #30 tab 02/10/19 Unknown Rx ED Physical Exam - General Limitations: No Limitations General appearance: alert, in no apparent distress - Head Head exam: Present: atraumatic, normocephalic - Eye Eye exam: Present: normal appearance - ENT ENT exam: Present: mucous membranes dry - Neck Neck exam: Present: normal inspection - Respiratory Respiratory exam: Present: normal lung sounds bilaterally. Absent: respiratory distress - Cardiovascular Cardiovascular Exam: Present: regular rate, normal rhythm. Absent: systolic murmur, diastolic murmur, rubs, gallop - GI/Abdominal GI/Abdominal exam: Present: soft, normal bowel sounds. Absent: distended, tenderness - Extremities Exam Extremities exam: Present: normal inspection - Back Exam Back exam: Present: normal inspection - Neurological Exam Neurological exam: Present: alert, oriented X3, CN II-XII intact. Absent: motor sensory deficit - Psychiatric Psychiatric exam: Present: normal affect, normal mood - Skin Skin exam: Present: warm, dry, intact, normal color. Absent: rash ED Course Vital Signs 04/03/20 16:45 Temperature 98.1 F Pulse Rate 77 Respiratory 18 Rate Blood Pressure 149/85 O2 Sat by Pulse 98 Oximetry ED Medical Decision Making - Lab Data Result diagrams: 04/03/20 17:05 04/03/20 17:05 Lab Results 04/03/20 04/03/20 04/03/20 Range/Units 17:05 17:05 17:05 WBC 9.3 (4.5-11.0) K/mm3 RBC 4.33 (3.65-5.03) M/mm3 Hgb 14.5 H (10.1-14.3) gm/dl Hct 41.9 (30.3-42.9) % MCV 97 (79-97) fl MCH 34 H (28-32) pg MCHC 35 H (30-34) % RDW 13.5 (13.2-15.2) % Plt Count 268 (140-440) K/mm3 Lymph % (Auto) 48.3 H (13.4-35.0) % [place] % (Auto) 9.8 H (0.0-7.3) % Eos % (Auto) 2.4 (0.0-4.3) % Baso % (Auto) 0.4 (0.0-1.8) % Lymph # (Auto) 4.5 (1.2-5.4) K/mm3 [place] # (Auto) 0.9 H (0.0-0.8) K/mm3 Eos # (Auto) 0.2 (0.0-0.4) K/mm3 Baso # (Auto) 0.0 (0.0-0.1) K/mm3 Seg Neutrophils % 39.1 L (40.0-70.0) % Seg Neutrophils # 3.6 (1.8-7.7) K/mm3 Sodium 142 (137-145) mmol/L Potassium 4.1 (3.6-5.0) mmol/L Chloride 106.3 (98-107) mmol/L Carbon Dioxide 23 (22-30) mmol/L Anion Gap 17 mmol/L BUN 14 (7-17) mg/dL Creatinine 0.9 (0.6-1.2) mg/dL Estimated GFR > 60 ml/min BUN/Creatinine Ratio 16 % Glucose 88 (65-100) mg/dL Calcium 9.4 (8.4-10.2) mg/dL Total Bilirubin < 0.20 (0.1-1.2) mg/dL AST 19 (5-40) units/L ALT 14 (7-56) units/L Alkaline Phosphatase 93 (35-129) units/L Troponin T < 0.010 (0.00-0.029) ng/mL Total Protein 7.3 (6.3-8.2) g/dL Albumin 4.3 (3.9-5) g/dL Albumin/Globulin Ratio 1.4 % HCG, Qual Negative (Negative) - EKG Data -: EKG Interpreted by Me EKG shows normal: sinus rhythm Rate: normal - Medical Decision Making Discussed with the patient importance of hydrating and to also refrain from illicit drug use. Discussed results with patient Critical care attestation.: If time is entered above; I have spent that time in minutes in the direct care of this critically ill patient, excluding procedure time. ED Disposition Clinical Impression: Lightheadedness Disposition: DC-01 TO HOME OR SELFCARE Is pt being admited?: No Does the pt Need Aspirin: No Condition: Stable Instructions: Dizziness Additional Instructions: return if worse Please keep your appointment with your primary care doctor tomorrow Referrals: PRIMARY CARE, [Primary Care Provider] - 3-5 Days KEILA PEÑA MD [Staff Physician] - 3-5 Days Time of Disposition: 19:54
== END 2020-04-03 20:00 | disposition home or self-care (01) ==
LOC: ED 15:51
DX: R42 Dizziness and giddiness (principal); I10 Essential (primary) hypertension; E11.9 Type 2 diabetes mellitus without complications; F20.9 Schizophrenia, unspecified; Z21 Asymptomatic human immunodeficiency virus [HIV] infection status; F17.200 Nicotine dependence, unspecified, uncomplicated; Z98.890 Other specified postprocedural states; Z79.899 Other long term (current) drug therapy
CPT/HCPCS: 36415; 70450; 71046; 80053; 84484; 84703; 85025; 93005

== ENCOUNTER 2020-07-30 10:37 | Emergency (ER) | payer MEDICAID ==
--- NOTE | 2020-07-30 11:17 | Event Note ---
ED Screening Note Date of service: 07/30/20 Time: 11:16 ED Screening Note: 55-year-old female with a past medical history of schizophrenia, hypertension and HIV presents to the ER today with complaints of diarrhea and dizziness today. Patient states that she was not able to eat for the past 3 days but yesterday was finally able to eat and had a lot to eat last night. Reports associated abdominal cramps and she also complains that she has had a cough for 1 week and she just does not feel like herself. This initial assessment/diagnostic orders/clinical plan/treatment(s) is/are subject to change based on patients health status, clinical progression and re- assessment by fellow clinical providers in the ED. Further treatment and workup at subsequent clinical providers discretion. Patient/guardian urged not to elope from the ED as their condition may be serious if not clinically assessed and managed. Initial orders include: Labs
[2020-07-30] MEDS ORDERED: ACETAMINOPHEN 325 MG TAB PO ONE (11:40)
[2020-07-30] MEDS ORDERED: ONDANSETRON 4 MG ODT TAB PO ONE (11:40)
[2020-07-30] MEDS ORDERED: ALBUTEROL 2.5 MG/3 ML NEBU IH ONE (11:40)
[2020-07-30] MEDS ORDERED: predniSONE 20 MG TAB PO ONE (11:40)
--- NOTE | 2020-07-30 11:54 | Emergency Department Report ---
ED General Adult HPI - General Chief complaint: Nausea/Vomiting/Diarrhea Stated complaint: Cough, wheezing, body aches PUI?: No Time Seen by Provider: 07/30/20 11:27 Source: patient, RN notes reviewed Mode of arrival: Ambulatory Limitations: Other (The patient is a poor historian) - History of Present Illness Initial comments: The patient was evaluated in the emergency department for symptoms described in the history of present illness. He/she was evaluated in the context of the global COVID-19 pandemic, which necessitated consideration that the patient might be at risk for infection with the virus that causes COVID-19. Institutional protocols and algorithms that pertain to the evaluation of patients at risk for COVID-19 are in a state of rapid change based on information released by regulatory bodies including the CDC and federal and state organizations. These policies and algorithms were followed during the patient's care in the emergency department. Please note that these policies, procedures and recommendations changed on a rapid basis. This is a 55-year-old female. She is not known to myself previously. She has a history of cannabis use, tobacco use, diabetes, schizophrenia, HIV, on antiviral therapy. She reports compliance with her antiviral therapy, does not know her current CD4 count or viral load, although she believes her viral load is undetectable. The patient also states she is up-to-date with COVID-19 vaccination. She presents to the ER today with a complaint of cough, wheezing, posttussive emesis, body aches. No fevers that she is aware of. Currently no nausea. Reports diarrhea which has since resolved. No loss of taste or smell. Reports abdominal cramping but no pain. Patient also complains of nonspecific dizziness without loss of consciousness. She describes the dizziness as lightheadedness. Reports exposure to sick contacts with similar symptoms. Reports symptoms are also worsened with consumption of cannabis and tobacco. -: Gradual, days(s) Quality: aching Consistency: intermittent Improves with: rest Worsens with: eating, movement - Related Data Home Medications Medication Instructions Recorded Confirmed Last Taken Biktarvy 50-200-25 mg (Nf) 1 tab PO DAILY 07/30/20 07/30/20 07/30/20 50 Previous Rx's Medication Instructions Recorded Last Taken Type Albuterol Sulfate [Proventil Hfa] 6.7 gm IH Q4H PRN #1 hfa.aer.ad 11/16/18 Unknown Rx amLODIPine 5 mg PO QDAY #30 tablet 11/16/18 07/30/20 Rx lisinopriL [Zestril TAB] 10 mg PO QDAY #30 tablet 11/16/18 07/30/20 Rx QUEtiapine [SEROquel] 100 mg PO BID #30 tab 02/10/19 07/29/20 Rx Acetaminophen [Non-Aspirin Extra 500 mg PO Q6HR PRN #30 tablet 07/30/20 Unknown Rx Strength] Albuterol Sulfate [Proair 90 mcg IH Q4HR PRN #2 aer.pow.ba 07/30/20 Unknown Rx Respiclick] Benzonatate [Tessalon Perles] 100 mg PO Q8HR PRN #30 capsule 07/30/20 Unknown Rx Ondansetron [Zofran Odt] 4 mg PO Q8HR PRN #20 tab.rapdis 07/30/20 Unknown Rx predniSONE [Deltasone] 40 mg PO QDAY #8 tab 07/30/20 Unknown Rx Allergies Allergy/AdvReac Type Severity Reaction Status Date / Time No Known Allergies Allergy Verified 02/10/19 11:12 ED Review of Systems ROS: Stated complaint: LIGHT HEADED Other details as noted in HPI Constitutional: fever (Subjective fever but no documented fever) Eyes: denies: eye discharge ENT: congestion Respiratory: cough Cardiovascular: denies: chest pain, syncope Gastrointestinal: nausea (Posttussive emesis), diarrhea (Now resolved) Genitourinary: denies: dysuria Musculoskeletal: myalgia Neurological: denies: weakness Psychiatric: anxiety ED Past Medical Hx - Past Medical History Previous Medical History?: Yes Hx Hypertension: Yes Hx Congestive Heart Failure: No Hx Diabetes: Yes (diet controlled) Hx Psychiatric Treatment: Yes (Schizophrenia) Hx Asthma: No Hx COPD: No Hx HIV: Yes (on anti-virals) - Surgical History Past Surgical History?: Yes Additional Surgical History: Surgery on right arm and a Cyst removed from buttock - Social History Smoking Status: Current Every Day Smoker Substance Use Type: None - Medications Home Medications: Home Medications Medication Instructions Recorded Confirmed Last Taken Type Albuterol Sulfate [Proventil Hfa] 6.7 gm IH Q4H PRN #1 hfa.aer.ad 11/16/18 07/30/20 Unknown Rx amLODIPine 5 mg PO QDAY #30 tablet 11/16/18 07/30/20 07/30/20 Rx lisinopriL [Zestril TAB] 10 mg PO QDAY #30 tablet 11/16/18 07/30/20 07/30/20 Rx QUEtiapine [SEROquel] 100 mg PO BID #30 tab 02/10/19 07/30/20 07/29/20 Rx Acetaminophen [Non-Aspirin Extra 500 mg PO Q6HR PRN #30 tablet 07/30/20 Unknown Rx Strength] Albuterol Sulfate [Proair 90 mcg IH Q4HR PRN #2 aer.pow.ba 07/30/20 Unknown Rx Respiclick] Benzonatate [Tessalon Perles] 100 mg PO Q8HR PRN #30 capsule 07/30/20 Unknown Rx Biktarvy 50-200-25 mg (Nf) 1 tab PO DAILY 07/30/20 07/30/20 07/30/20 History 50 Ondansetron [Zofran Odt] 4 mg PO Q8HR PRN #20 tab.rapdis 07/30/20 Unknown Rx predniSONE [Deltasone] 40 mg PO QDAY #8 tab 07/30/20 Unknown Rx ED Physical Exam - General Limitations: No Limitations General appearance: alert, in no apparent distress, other (Patient speaking on cell phone in no acute distress) - Head Head exam: Present: atraumatic, normocephalic - Eye Eye exam: Present: normal appearance, EOMI. Absent: nystagmus - ENT ENT exam: Present: normal exam, normal orophraynx, mucous membranes moist, normal external ear exam - Neck Neck exam: Present: normal inspection, full ROM. Absent: tenderness, meningismus - Respiratory Respiratory exam: Present: rhonchi. Absent: respiratory distress, rales, stridor - Cardiovascular Cardiovascular Exam: Present: regular rate, normal rhythm, normal heart sounds. Absent: bradycardia, tachycardia, irregular rhythm, systolic murmur, diastolic murmur, rubs, gallop - GI/Abdominal GI/Abdominal exam: Present: soft. Absent: distended, tenderness, guarding, rebound, rigid, pulsatile mass - Extremities Exam Extremities exam: Present: normal inspection, full ROM, other (2+ pulses noted in the bilateral upper and lower extremities. There is no palpable cord. negative Homans sign. Muscular compartments are soft. The pelvis is stable.). Absent: pedal edema, calf tenderness - Back Exam Back exam: Present: normal inspection, full ROM. Absent: tenderness, CVA tenderness (R), CVA tenderness (L), paraspinal tenderness, vertebral tenderness - Neurological Exam Neurological exam: Present: alert, oriented X3, normal gait, other (No facial droop. Tongue midline. Extraocular movements intact bilaterally. Facial sensation intact to light touch in V1, V2, V3 distribution bilaterally. 5 and a 5 strength in 4 extremities. Sensation intact to light touch in 4 extremities.). Absent: motor sensory deficit - Psychiatric Psychiatric exam: Present: normal affect, normal mood - Skin Skin exam: Present: warm, dry, intact, normal color. Absent: rash ED Course Vital Signs 07/30/20 07/30/20 10:39 13:15 Temperature 98.8 F Pulse Rate 85 Pulse Rate [ 76 Bilateral] Respiratory 18 Rate Respiratory 14 Rate [Bilateral ] Blood Pressure 159/94 [Right] O2 Sat by Pulse 96 Oximetry - Reevaluation(s) Reevaluation #1: 07/30/20 11:53 Differential diagnosis, including but not limited to: Dehydration, orthostasis, bronchitis, pneumonitis, pneumonia, electrolyte derangement Assessment and plan: 55-year-old female, who is afebrile with reassuring vital signs, clinically sober with a GCS of 15, not currently tachycardic, tachypneic or hypoxic, with recent sick person exposure, with probable bronchitis and/or pneumonitis. She walks with a steady gait. She is speaking on a cell phone and in no acute distress. She is a poor historian. Check x-ray the chest, EKG, appropriate laboratory studies, treat with antiemetics, analgesics, and albuterol, and reassess. Reevaluation #2: 07/30/20 12:48 EKG unchanged from prior. No active vomiting. Chest x-ray clear. Laboratory studies nonactionable. This is most likely bronchitis/viral syndrome. 07/30/20 12:49 as per review of medications, patient takes Biktarvy. 07/30/20 14:01 No active vomiting. Laboratory studies unremarkable. Chest x-ray unremarkable. Suitable for discharge with outpatient management and supportive care ED Medical Decision Making - Lab Data Result diagrams: 07/30/20 11:46 07/30/20 11:46 Vital Signs 07/30/20 10:39 Temperature 98.8 F Pulse Rate 85 Respiratory 18 Rate Blood Pressure 159/94 [Right] O2 Sat by Pulse 96 Oximetry Lab Results 07/30/20 07/30/20 Range/Units 11:46 11:46 WBC 8.3 (4.5-11.0) K/mm3 RBC 4.56 (3.65-5.03) M/mm3 Hgb 15.1 H (10.1-14.3) gm/dl Hct 43.5 H (30.3-42.9) % MCV 96 (79-97) fl MCH 33 H (28-32) pg MCHC 35 H (30-34) % RDW 14.2 (13.2-15.2) % Plt Count 291 (140-440) K/mm3 Lymph % (Auto) 44.2 H (13.4-35.0) % [place] % (Auto) 9.6 H (0.0-7.3) % Eos % (Auto) 1.5 (0.0-4.3) % Baso % (Auto) 0.5 (0.0-1.8) % Lymph # (Auto) 3.7 (1.2-5.4) K/mm3 [place] # (Auto) 0.8 (0.0-0.8) K/mm3 Eos # (Auto) 0.1 (0.0-0.4) K/mm3 Baso # (Auto) 0.0 (0.0-0.1) K/mm3 Seg Neutrophils % 44.2 (40.0-70.0) % Seg Neutrophils # 3.7 (1.8-7.7) K/mm3 Sodium 137 (137-145) mmol/L Potassium 3.7 (3.6-5.0) mmol/L Chloride 104.4 (98-107) mmol/L Carbon Dioxide 22 (22-30) mmol/L Anion Gap 14 mmol/L BUN 11 (7-17) mg/dL Glucose 82 (65-100) mg/dL Calcium 9.3 (8.4-10.2) mg/dL Magnesium 2.20 (1.7-2.3) mg/dL Total Bilirubin 0.30 (0.1-1.2) mg/dL AST 19 (5-40) units/L ALT 15 (7-56) units/L Alkaline Phosphatase 74 (35-129) units/L Total Protein 8.1 (6.3-8.2) g/dL Albumin 4.2 (3.9-5) g/dL Albumin/Globulin Ratio 1.1 % - EKG Data -: EKG Interpreted by Me EKG shows normal: sinus rhythm Rate: normal - EKG Data When compared to previous EKG there are: no significant change 07/30/20 12:47 EKG interpreted at 12: 06 Sinus rhythm, normal P wave axis, rate 62 bpm, normal axis, normal intervals, left ventricular hypertrophy, not a STEMI. Minimal motion artifact. Poor R wa ve progression V2. Abnormal EKG. Unchanged from prior EKG from 03/2020 - Radiology Data Radiology results: pending, image reviewed interpreted by me: 2 view x-ray of the chest, interpreted myself, negative for acute findings. Specifically, no pneumothorax, no infiltrate, unremarkable cardiac silhouette Critical care attestation.: If time is entered above; I have spent that time in minutes in the direct care of this critically ill patient, excluding procedure time. ED Disposition Clinical Impression: Bronchitis, History of nausea, Marijuana use, Tobacco use Disposition: DC-01 TO HOME OR SELFCARE Is pt being admited?: No Does the pt Need Aspirin: No Condition: Good Instructions: Upper Respiratory Infection, Adult, [id number], Steps to Quit Smoking, Chronic Bronchitis (ED) Additional Instructions: Patient most likely has bronchitis. This is likely coming from both tobacco and marijuana use/consumption. Bronchitis symptoms will typically last anywhere from 4 to 6 weeks. However, symptoms may last for longer or shorter. Recommend immediate discontinuation of tobacco and marijuana and smoke products. Please take the cough medication, breathing medication as needed and directed, pain medication and nausea medication as needed and directed. Please continue current home medications. Please follow-up with your primary care doctor within the next 7 to 10 days. Please return to the emergency room right away with new pain, worsened pain, migration of pain, rectal vomiting, change in mental status, confusion, inability to tolerate liquid feeds, new, worsened or different symptoms not present on the initial emergency room evaluation. Also recommend that patient wash hands frequently, thoroughly and often, especially after coughing, sneezing, or before eating. Prescriptions: predniSONE [Deltasone] 40 mg PO QDAY #8 tab Acetaminophen [Non-Aspirin Extra Strength] 500 mg PO Q6HR PRN #30 tablet PRN Reason: Pain , Severe (7-10) Albuterol Sulfate [Proair Respiclick] 90 mcg IH Q4HR PRN #2 aer.pow.ba PRN Reason: Wheezing Benzonatate [Tessalon Perles] 100 mg PO Q8HR PRN #30 capsule PRN Reason: Cough Ondansetron [Zofran Odt] 4 mg PO Q8HR PRN #20 tab.rapdis PRN Reason: Nausea Referrals: KEILA PEÑA MD [Staff Physician] - 3-5 Days [facility] [Provider Group] - 3-5 Days
[2020-07-30 12:15] LABS: Basophils % (Auto) 0.5 % (0.0-1.8); Eosinophils # (Auto) 0.1 K/mm3 (0.0-0.4); Eosinophils % (Auto) 1.5 % (0.0-4.3); Hematocrit 43.5 % (30.3-42.9); Hemoglobin 15.1 gm/dl (10.1-14.3); Lymphocytes # (Auto) 3.7 K/mm3 (1.2-5.4); Lymphocytes % (Auto) 44.2 % (13.4-35.0); Mean Corpuscular HGB Conc 35 % (30-34); Mean Corpuscular Volume 96 fl (79-97); Monocytes # (Auto) 0.8 K/mm3 (0.0-0.8); Monocytes % (Auto) 9.6 % (0.0-7.3); Platelet Count 291 K/mm3 (140-440); Red Blood Count 4.56 M/mm3 (3.65-5.03); Red Cell Distribution Width 14.2 % (13.2-15.2)
[2020-07-30 12:39] LABS: Alanine Aminotransferase 15 units/L (7-56); Albumin 4.2 g/dL (3.9-5); Blood Urea Nitrogen 11 mg/dL (7-17); Calcium 9.3 mg/dL (8.4-10.2); Hemolysis Index 7
[2020-07-30 12:47] LABS: BUN/Creatinine Ratio 16
--- NOTE | 2020-07-30 12:57 | XRay Report ---
XR chest routine 2V INDICATION / CLINICAL INFORMATION: Productive cough x1 week. COMPARISON: 04/03/2020 FINDINGS: SUPPORT DEVICES: None. HEART /PULMONARY VASCULATURE: No significant abnormality. LUNGS / PLEURA: No significant pulmonary or pleural abnormality. No pneumothorax. ADDITIONAL FINDINGS: No significant additional findings. IMPRESSION: 1. No acute findings. Signer Name: Doug Ley MD Signed: 07/30/2020 12:53 PM Workstation Name: [email or web address]
[2020-07-30 14:34] VITALS: BP 167/95
--- NOTE | 2020-08-08 10:42 | Electrocardiograph Report ---
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
== END 2020-07-30 14:25 | disposition home or self-care (01) ==
LOC: ED 10:37
DX: J40 Bronchitis, not specified as acute or chronic (principal); F12.10 Cannabis abuse, uncomplicated; F17.200 Nicotine dependence, unspecified, uncomplicated; R11.0 Nausea; I10 Essential (primary) hypertension; E11.9 Type 2 diabetes mellitus without complications; F20.9 Schizophrenia, unspecified; Z21 Asymptomatic human immunodeficiency virus [HIV] infection status; Z98.890 Other specified postprocedural states; Z79.899 Other long term (current) drug therapy
CPT/HCPCS: 36415; 71046; 80053; 82550; 83735; 85025; 93005; 94640; 99284; J7512; 94644; Q0162

== ENCOUNTER 2021-04-18 16:13 | Emergency (ER) | payer MEDICAID | END 2021-04-18 17:31 | disposition left against medical advice (07) | LOC: ED 16:13 | DX: R69 Illness, unspecified (principal); Z53.21 Procedure and treatment not carried out due to patient leaving prior to being seen by health care provider ==

== ENCOUNTER 2021-08-27 09:51 | Emergency (ER) | payer MEDICAID ==
[2021-08-27 10:18] VITALS: BP 156/91
--- NOTE | 2021-08-27 10:44 | Event Note ---
ED Screening Note ED Screening Note: CO CP P ARGUMENT WITH SON SP 2 STENTS ON 08/20 [address] SOB RO ACS This initial assessment/diagnostic orders/clinical plan/treatment(s) is/are subject to change based on patients health status, clinical progression and re- assessment by fellow clinical providers in the ED. Further treatment and workup at subsequent clinical providers discretion. Patient/guardian urged not to elope from the ED as their condition may be serious if not clinically assessed and managed. Initial orders include: TO MAIN FOR W/O
--- NOTE | 2021-08-29 17:14 | Electrocardiograph Report ---
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
== END 2021-08-27 11:15 | disposition left against medical advice (07) ==
LOC: ED 09:51
DX: R07.89 Other chest pain (principal); Z53.21 Procedure and treatment not carried out due to patient leaving prior to being seen by health care provider
CPT/HCPCS: 93005

== ENCOUNTER 2021-11-13 12:23 | Emergency (ER) | payer MEDICAID ==
[2021-11-13 12:37] VITALS: BP 141/79
== END 2021-11-14 17:52 | disposition left against medical advice (07) ==
LOC: ED 12:23
DX: R53.1 Weakness (principal); Z53.21 Procedure and treatment not carried out due to patient leaving prior to being seen by health care provider

== ENCOUNTER 2021-11-14 10:38 | Emergency (ER) | payer MEDICAID | END 2021-11-14 17:53 | disposition left against medical advice (07) | LOC: ED 10:38 | DX: R50.9 Fever, unspecified (principal); R20.0 Anesthesia of skin; Z53.21 Procedure and treatment not carried out due to patient leaving prior to being seen by health care provider ==